=== PATIENT | male | born 1970 | race Hispanic/Latino ===

== ENCOUNTER 2024-07-31 11:03 | Emergency (ER) | payer OTHER, SELFPAY ==
[2024-07-31 11:15] VITALS: BP 120/76; PULSE 61; RESP 16; TEMP 36.6; O2SAT 98
--- NOTE | 2024-07-31 11:35 | ED.GENADULT ---
HPI - General Adult General Chief complaint: Nausea/Vomiting/Diarrhea Stated complaint: feels weak,shaky,stomach upset Time Seen by Provider: 07/31/24 11:36 Source: patient, RN notes reviewed and old records reviewed Mode of arrival: ambulatory Limitations: no limitations History of Present Illness HPI narrative: 54-year-old male presents to the [facility] with complaints of feeling weak, shaky, upset stomach for the last 5 days. Patient reports days ago started with a change in vision which has improved. Feeling nauseous shaky, generalized weak and diarrhea. Denies any chest pain or shortness of breath. Denies abdominal pain. States that he drinks a can of Coke or eats a piece of candy that he feels better Patient came to the [facility] requesting blood work, explained that we do not offer that service. Patient requesting that we transfer him to the ER for further evaluation. Onset (ago): day(s) (5) Related Data Home Medications ?Medication ?Instructions ?Recorded ?Confirmed ?Last Taken ?Type aspirin 81 mg tablet,delayed mg 07/31/24 Unknown History release atorvastatin 40 mg tablet mg 07/31/24 Unknown History sertraline 100 mg tablet mg 07/31/24 Unknown History Allergies Allergy/AdvReac Type Severity Reaction Status Date / Time No Known Allergies Allergy Verified 07/31/24 12:37 Review of Systems Review of Systems: All systems reviewed & are unremarkable except as noted in HPI and below Constitutional: Constitutional: Reports as per HPI, Reports fatigue, Reports lethargy and Reports weakness ENT: Reports system reviewed and no additional complaints, except as documented Cardiovascular: Cardiovascular: Reports no additional cardiovascular complaints, Denies chest pain and Denies dyspnea Respiratory: Respiratory: Reports no additional respiratory complaints, Denies chest congestion, Denies cough and Denies dyspnea Gastrointestinal: Gastrointestinal: Reports as per HPI, Denies abdominal pain, Reports diarrhea, Reports nausea and Denies vomiting Musculoskeletal: Musculoskeletal: Reports no additional musculoskeletal complaints Integumentary/Breasts: Skin/Breast: Reports system reviewed and no additional complaints, except as docu [facility] Past Medical History Medical History (Updated 07/31/24 @ 13:40 by Stefania Miller APRN) History of high cholesterol Comments At the time of my signature, I reviewed and agree with the nursing past medical, surgical, social, and family history. There is no relevant family history pertinent to the patient complaint. Exam Const: General: cooperative, healthy appearing, comfortable, no acute distress, well developed, alert and well nourished Nutritional Appearance: well nourished Orientation/consciousness: patient oriented x3 Limitations: no limitations HENMT: Head: normal to inspection Eyes: General: appearance normal, both eyes and all related structures Alignment and Position: alignment normal Neck: Neck: normal visual inspection, full ROM, no lymphadenopathy and no meningeal signs Chest: Chest palpation & inspection: normal inspection of the chest Resp: Effort & Inspection: normal respiratory effort and able to speak in complete sentences Auscultation: clear to auscultation bilaterally, no crackles, no rales, no rhonchi and no wheezes Cardio: Rate: regular rate Skin: General skin exam: normal color and no rashes or lesions noted Neuro: General: patient oriented x3, gait normal, moves all extremities and no meningeal signs Cognition (Neuro): normal cognition Speech: normal speech Gait exam (Neuro): Normal gait present Extrem: General: normal to inspection, full ROM, capillary refill normal and normal gait Psych: Appearance: grossly normal and well kempt Mental Status: mental status grossly normal Speech and movement: Normal speech and movement present and Clear speech present Affect: normal affect Attitude: cooperative Course Course Level of Care: Express Care Visit Vital Signs Vital signs: Vital Signs Temperature 97.9 F 07/31/24 11:15 Pulse Rate 61 07/31/24 11:15 Respiratory Rate 16 07/31/24 11:15 Blood Pressure 120/76 07/31/24 11:15 Pulse Oximetry 98 07/31/24 11:15 Oxygen Delivery Room Air 07/31/24 11:15 Temperature 97.9 F 07/31/24 11:15 Pulse Rate 61 07/31/24 11:15 Respiratory Rate 16 07/31/24 11:15 Blood Pressure 120/76 07/31/24 11:15 Pulse Oximetry 98 07/31/24 11:15 Oxygen Delivery Room Air 07/31/24 11:15 Reviewed Transfer Transfered to: [facility] (Per patient request) Transportation: Other (POV) Transfer rationale: Patient requesting transfer to the ER for further evaluation, testing Accepting physician: Spoke with Dr. Ortiz Medical Decision Making MDM Narrative Medical decision making narrative: Patient sitting in exam room. Patient is nontoxic, vitals are stable. Blood sugar 118. Patient with 5 day history of weakness, fatigue requesting lab work. Unable to provide services patient is requesting. Patient requested transfer to the ER All questions have been answered, and the patient deny any further questions. Some parts of this dictation were generated by voice recognition software and may contain typographical and/or grammatical inaccuracies. Differential Diagnosis Differential Diagnosis: Generalized weakness, dehydration, kidney issues, liver issues, diabetes, cardiac event Medical Records Medical records reviewed: Yes I reviewed the external patient's medical records. Vital Signs Vital Signs: Vital Signs Temperature 97.9 F 07/31/24 11:15 Pulse Rate 61 07/31/24 11:15 Respiratory Rate 16 07/31/24 11:15 Blood Pressure 120/76 07/31/24 11:15 Pulse Oximetry 98 07/31/24 11:15 Oxygen Delivery Room Air 07/31/24 11:15 Temperature 97.9 F 07/31/24 11:15 Pulse Rate 61 07/31/24 11:15 Respiratory Rate 16 07/31/24 11:15 Blood Pressure 120/76 07/31/24 11:15 Pulse Oximetry 98 07/31/24 11:15 Oxygen Delivery Room Air 07/31/24 11:15 Reviewed Lab Data Lab results reviewed: Yes I reviewed the patient's lab results. Labs: Lab Results 07/31/24 Range/Units 11:44 POC Capillary Glucose 118 H (65-105) mg/dl Reviewed Critical Care Time Critical Care Time Critical Care Time: No Discharge Plan Discharge Clinical Impression: Weakness Diarrhea Qualifiers: Diarrhea type: unspecified type Qualified Code(s): R19.7 - Diarrhea, unspecified Patient Disposition: Acute Care Hospital Condition: Stable Patient Language: Croatian Prescriptions: No Action atorvastatin 40 mg tablet sertraline 100 mg tablet aspirin 81 mg tablet,delayed release (/EC) Follow-up/Referrals: Laura,JOAQUIM Perez [Primary Care Provider] - 1 Week Time of Disposition: 11:51
[2024-07-31 11:47] LABS: Glucose Point of Care 118 mg/dl (65-105)
== END 2024-07-31 11:55 | disposition short-term general hospital (02) ==
PROVIDERS: Emergency Provider Nurse Practitioner; PCP Registered Nurse
DX: R53.1 Weakness (principal); R19.7 Diarrhea, unspecified; E78.00 Pure hypercholesterolemia, unspecified
CPT/HCPCS: 82948; 99212; G0463

== ENCOUNTER 2024-07-31 12:36 | Emergency (ER) | payer OTHER, SELFPAY ==
--- NOTE | ~2024-07-31 | XR_ITS ---
Clinical Indication: Fatigue, dizziness PA and lateral views of the chest: Comparison: None Findings: The lungs are clear, without evidence of focal consolidation or pleural effusion. Cardiome diastinal silhouette is within normal limits. Bones and soft tissues are unremarkable. Impression: Normal chest. Reviewed, dictated and finalized at location . Impression: Normal chest.
[2024-07-31 12:49] VITALS: BP 127/83; PULSE 57; RESP 18; TEMP 36.7; O2SAT 98
--- NOTE | 2024-07-31 12:59 | PC.NURSE ---
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 Starting 5 days ago he became feeling dizzy and fatigued. Symptoms are relieved by drinking coke. Pt. states he eats very little throughout the day. Pt. only complaint at this time is fatigue. Denies current dizziness. Pt. states i feel 75% good.
--- NOTE | 2024-07-31 13:01 | ECG_ITS ---
Test Date: 2024-07-31 13:41:23 Measurements Intervals [place] Rate: 58 P: 46 PA: 192 QRS: 61 QRSD: 94 T: 71 QT: 420 QTc: 414 Interpretive Statements SINUS BRADYCARDIA BORDERLINE ECG No previous ECG available for comparison Electronically Signed On 07-31-2024 14:02:33 CDT by Grady Alfaro D.O.
[2024-07-31 13:26] LABS: Basophils Absolute Auto 0.1 K/mm3 (0.0-0.1); Basophils Percent Auto 0.8 % (0.2-1.2); Eosinophils Absolute Auto 0.1 K/mm3 (0-0.3); Eosinophils Percent Auto 1.3 % (0-4.4); Hematocrit 49.8 % (42.0-52.0); Hemoglobin 16.4 g/dL (14.0-18.0); Immature Granulocyte Absolute 0.02 K/mm3 (0.00-0.031); Immature Granulocyte Percent A 0.3 % (0-0.5); Lymphocytes Absolute Auto 1.43 K/mm3 (0.9-3.2); Lymphocytes Percent Auto 23.8 % (18.3-44.2); Mean Corpuscular HGB Conc 32.9 g/dl (32-36); Mean Corpuscular Hemoglobin 29.7 pg (26-34); Mean Corpuscular Volume 90.2 fl (80-100); Mean Platelet Volume 9.9 fl (7.4-10.4); Monocytes Absolute Auto 0.3 K/mm3 (0.1-0.6); Monocytes Percent Auto 5.3 % (2.6-8.5); Neutrophils Absolute Auto 4.1 K/mm3 (1.3-6.7); Neutrophils Percent Auto 68.5 % (45.5-73.1); Platelet Count Result 244 k/mm3 (150-375); Red Blood Count 5.52 M/mm3 (4.6-6.20); Red Cell Distribution Width 13.1 % (11.5-14.5)
--- OUTSIDE RECORDS SUMMARY | 2024-07-31 13:34 | XMS_ITS | Referral Summary ---
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 Name Role Phone Chris Sanchez ASSURANCE AUDITOR Primary Care Provider [phone] Allergies No known active allergies Medications HYDROcodone-konrad taminophen (NORCO) 5-325 mg per tabletIndicatio ns:Pain Take 1 tablet by mouth every 8 (eight) hours as needed for pain 10 tablet 4 Active lidocaine (ASPERCREME) 4 % adhesive patch,medicated Apply 1 patch topically daily 10 patch 4 Active ibuprofen (ADVIL,MOTRIN) 600 mg tablet Take 1 tablet (600 mg total) by mouth every 6 (six) hours as needed for pain 20 tablet 4 Active Social History Tobacco Use Types Packs/Day Years Used Date Smoking Tobacco: Never Assessed Personal Safety Answer Date Recorded Have you ever been in or are you currently in a harmful physical or emotional relationship or is someone making you feel afraid or unsafe? Denies 01/14/2024 Sex and Gender Information Value Date Recorded Sex Assigned at Not on file Legal Sex Male 12:57 PM CDT Gender Identity Not on file Sexual Orientation Not on file Last Filed Vital Signs Vital Sign Reading Time Taken Comments Blood Pressure 143/85 01/14/2024 5:00 PM CDT Pulse 75 01/14/2024 5:00 PM CDT Temperature 36.9 C (98.4 F) 01/14/2024 12:59 PM CDT Respiratory Rate 18 01/14/2024 5:00 PM CDT Oxygen Saturation 99% 01/14/2024 5:00 PM CDT Inhaled Oxygen Concentration - - Weight 88.5 kg (195 lb) 01/14/2024 12:57 PM CDT Height 167.6 cm (5' 6 ) 01/14/2024 12:57 PM CDT Body Mass Index 31.47 01/14/2024 12:57 PM CDT Plan of Treatment Not on file Insurance [facility] Member Subscriber Plan / Payer (Ef fective 2024-Present) Name:Joshua Luis Relation to Subscriber:Self Name:Joshua Luis Payer ID:[id number] (NAIC) Group ID:Not on file Type:MEDICAID RISK OTHER Address: ATTN: [employer]S DEPT [address] [place] [id number] [facility] Care Teams 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
--- OUTSIDE RECORDS SUMMARY | 2024-07-31 13:34 | XMS_ITS | Clinical Summary ---
Author Organization [facility] Address [address] [place] [address] Care Team Providers Care Epic [employer] Name Role Phone Chris Sanchez TRANSMISSION SUPERINTENDENT Primary Care Provider [phone] Allergies No known active allergies Medications HYDROcodone-konrad [...] 01/14/2024 12:57 PM CDT Plan of Treatment Health Maintenance Due Date Last Done Comments Colon Cancer Screening-Colonoscopy 1968 Depression Screening 1968 Hepatitis C Screening 1968 Prostate Cancer Screening-PSA 1968 Hepatitis B Screening 1986 Regular Well Visit/Exam 18-64 1986 Covid-19 Vaccine ( season) 2023 02/08/2022, 03/20/2021, 07/26/2020, Additional history exists DTaP/Tdap/Td Vaccine (3 - Td or Tdap) 08/12/2027 08/11/2017, 08/03/2007 Zoster Vaccine Completed 01/04/2022, 10/19/2021 Influenza Vaccine Completed 12/26/2023, , 12/21/2021, Additional history exists Pneumococcal vaccine <65 Aged Out No longer eligible based on patient's age to complete this topic Insurance [facility] Care Teams [employer] Relationship Specialty Start Date End Date Chris Sanchez NP [facility], [place] [address] PCP - General Nurse Practitioner 01/14/24
--- OUTSIDE RECORDS SUMMARY | 2024-07-31 13:35 | XMS_ITS | Data Portability ---
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 Name Role Phone CHRIS ORTEGA Primary Care Provider Assessment Encounter Date Assessment Date Assessment LastModified by Organization Details LastModified Time 07/16/2024 07/16/2024 F/u 3-4 months, advised come fasting [email or web address] Not available 07/16/2024 15:01:43 Plan of Treatment Reminders Order Date Submit Date Provider Last Modified By Organization Details Last Modified Time Details Appointments ANY 15 2024 09:15A M Chris Ortega, [employer] Not available Not available Not available Lab lipid panel, serum 2023 024 [facility], [address] [place], [place] [address]medina Adolph, [facility] [address], [place], [address], 01/11/2024 22:07:41 CMP, serum or plasma 2023 024 [facility], [address] [place], [place] [address]medina Adolph, [address], [place], [address], 01/11/2024 22:07:42 TSH, ultra- sensit emery, serum 2023 024 MANLIUS [facility], [address] [place] [address], [address], [place], [address], 01/12/2024 11:17:45 HbA1c (hemog lobin A1c), blood 2023 024 [email or web address] In-Office Order, Internal Use Only DO Not Attach Compendium DO Not Attach Compendium, Do Not Delete/merge, [id number] 01/11/2024 16:55:41 lipid panel, serum 2023 024 [facility], [address] [facility], [address], [place], [address], 01/11/2024 10:05:31 CMP, serum or plasma 2023 024 [facility], [address] [facility] [address], [address], [place], [address], 01/11/2024 10:05:41 TSH, ultra- sensit emery, serum 2023 024 [facility], [address] [facility], [address], [place], [address], 01/11/2024 10:05:36 HbA1c (hemog lobin A1c), blood 2023 024 PEDRO In-Office Order, Internal Use Only DO Not Attach Compendium DO Not Attach Compendium, Do Not Delete/merge, [id number] 12/26/2023 16:44:34 Referral None record ed. Procedures None record ed. Surgeries None record ed. Imaging None record ed. Medication Orders atorva statin 40 mg tablet 2024 025 [facility], [address] [place] [address], [id number], 07/16/2024 15:15:00 sertra line 100 mg tablet 2024 025 [facility], [address] [place] [address], [id number], 07/16/2024 15:14:59 ibupro fen 600 mg tablet 2023 025 [facility], [address] [place] [address], [id number], 07/16/2024 14:44:34 hydroc odone 5 mg-konrad tamino phen 325 mg tablet 2023 024 [facility], [address] [place] [address], [id number], 07/16/2024 14:30:42 hydroc odone 5 mg-konrad tamino phen 325 mg tablet 2023 025 [facility], [address] [place] [address], [id number], 07/16/2024 14:44:32 Enteri c Coated Aspiri n 81 mg tablet ,delay ed releas e 2023 [facility], [address] [place] [address], [id number], 07/16/2024 14:44:34 atorva statin 40 mg tablet 2023 024 [facility], [address] [place] [address], [id number], 07/19/2024 14:48:24 diclof enac sodium 75 mg tablet ,delay ed releas e 2023 025 [facility], [address] [place] [address], [id number], 07/16/2024 14:44:36 sertra line 100 mg tablet 2023 024 [facility], [address] [place] [address], [id number], 07/19/2024 14:48:24 Enteri c Coated Aspiri n 81 mg tablet ,delay ed releas e 2023 [facility], [address] [place] [address], [id number], 07/16/2024 14:31:22 atorva statin 40 mg tablet 2023 024 [facility], [address] [place], [place], [id number], 09/23/2023 13:50:34 diclof enac sodium 75 mg tablet ,delay ed releas e 2023 [facility], [address] [place], [place], [id number], 07/16/2024 14:31:10 sertra line 100 mg tablet 2023 024 [facility], [address] [place], [place], [id number], 09/23/2023 13:50:33 Patient TargetsNo targets recorded. Patient Instructions Encounter Date Encounter Id Patient Instructions Last Modified By Organization Details Last Modified Time 2023 [id number] A healthy lifestyle: care instructions [email or web address] Not available 2023 14:44:54 aprenda acerca d el peso saludable - [learning about healthy weight] [email or web address] Not available 2023 14:44:54 ndice de masa corporal: instrucciones de cuidado - [body mass index: care instructions] [email or web address] Not available 2023 14:44:55 -Always present to ER or Urgent Care with any progession of/alarming symptoms, significant changes in symptoms that are concerning or urgent matters -Pt educated re heart health TLCs: Eat a variety of foods every day. Good choices include fruits, vegetables, whole grains (like oatmeal), dried beans and peas, nuts and seeds, soy products (like tofu), and fat-free or low-fat dairy products. Replace butter, margarine, and hydrogenated or partially hydrogenated oils with olive and canola oils. (Canola oil margarine without trans fat is fine.) Replace red meat with fish, poultry, and soy protein (like tofu). Limit processed and packaged foods like chips, crackers, and cookies. Bake, broil, or steam foods. Don't haq them. Be physically active. Get at least 30 minutes of exercise on most days of the week. Pt informed of optimum health recommendations: 150 mins of aerobic exercise weekly 7-9 hrs of sleep 7-13 servings of fruit and vegetables each day 1/2 of body weight in oz of water daily Plant based diet yarauz Not available 2023 14:33:12 if you are going to stop antidepressant instructed on tapering dosage Avoid all breads, potatoes, cereal, pasta, rice, margarine, refined sugars, milk yogurt, ice cream, juices, soda (including diet), beer, and manmade or manufactured desserts. Enjoy steak, fish, chicken (no skin), pork, butter, vegetables, beans, nuts, whole eggs, cheese (low fat or skim), cream in your coffee. stop smoking Benefits risks of psychotropic medications if you develop suicidal thoughts or behaviors seek immediate reevaluation avoid alcohol when taking psychotropic medications if you develop fevers, chills, diarrhea, muscle symptoms or seizures to seek immediate reevaluation take your medicine as directed yarauz Not available 2023 16:18:55 12/26/2023 [id number] vacuna contra la influenza (gripe): instrucciones de cuidado - [influenza (flu) vaccine: care instructions] yarauz Not available 12/26/2023 16:14:35 A healthy lifestyle: care instructions yarauz Not available 12/26/2023 16:14:35 aprenda acerca d el peso saludable - [learning about healthy weight] yarauz Not available 12/26/2023 16:14:35 ndice de masa corporal: instrucciones de cuidado - [body mass index: care instructions] yarauz Not available 12/26/2023 16:14:35 -Always present to ER or Urgent Care with any progession of/alarming symptoms, significant changes in symptoms that are concerning or urgent matters -Pt educated re heart health TLCs: Eat a variety of foods every day. Good choices include fruits, vegetables, whole grains (like oatmeal), dried beans and peas, nuts and seeds, soy products (like tofu), and fat-free or low-fat dairy products. Replace butter, margarine, and hydrogenated or partially hydrogenated oils with olive and canola oils. (Canola oil margarine without trans fat is fine.) Replace red meat with fish, poultry, and soy protein (like tofu). Limit processed and packaged foods like chips, crackers, and cookies. Bake, broil, or steam foods. Don't haq them. Be physically active. Get at least 30 minutes of exercise on most days of the week. Pt informed of optimum health recommendations: 150 mins of aerobic exercise weekly 7-9 hrs of sleep 7-13 servings of fruit and vegetables each day 1/2 of body weight in oz of water daily Plant based diet yarauz Not available 12/26/2023 16:10:16 if you are going to stop antidepressant instructed on tapering dosage Avoid all breads, potatoes, cereal, pasta, rice, margarine, refined sugars, milk yogurt, ice cream, juices, soda (including diet), beer, and manmade or manufactured desserts. Enjoy steak, fish, chicken (no skin), pork, butter, vegetables, beans, nuts, whole eggs, cheese (low fat or skim), cream in your coffee. stop smoking Benefits risks of psychotropic medications if you develop suicidal thoughts or behaviors seek immediate reevaluation avoid alcohol when taking psychotropic medications if you develop fevers, chills, diarrhea, muscle symptoms or seizures to seek immediate reevaluation take your medicine as directed yarauz Not available 12/26/2023 16:10:19 01/20/2024 [id number] broken rib: care instructions [email or web address] Not available 01/20/2024 12:01:46 aprenda acerca d el peso saludable - [learning about healthy weight] yarauz Not available 01/20/2024 11:41:07 ndice de masa corporal: instrucciones de cuidado - [body mass index: care instructions] yarauz Not available 01/20/2024 11:41:07 continue to use incentive spirometry continue pain meds Even if it hurts, try to cough or take the deepest breath you can at least once every hour. This will get air deeply into your lungs. This may reduce your chance of getting pneumonia or a partial collapse of a lung. Hold a pillow against your chest to make this less painful. Put ice or a cold pack on the area for 10 to 20 minutes at a time. Put a thin cloth between the ice and your skin. seek immediate care if You have some trouble breathing. You have a fever. You have a new or worse cough. jaguar Not available 01/20/2024 11:49:47 07/16/2024 [id number] A healthy lifestyle: care instructions margaret Not available 07/16/2024 15:01:18 Reason for Referral None Reported. Results Created Date Observation Date Name Description Value Unit Range Abnormal Flag Note LastModifiedBy Organization Detail LastModifiedTime 12/26/1912/26/2023 HbA1c (hemo globi n A1c), blood HbA1c Not Available In-Office Order Internal Use Only DO Not Attach Compendium DO Not Attach Compendium, Do Not Delete/merge, [id number] 12/26/2023 16:14:03 01/11/2001/11/2024 LIPID PANEL cholesterol, total 142 mg/dL 100-19 9 Not Available [facility] [address] [place], [address], 01/11/2024 22:07:40 01/11/2001/11/2024 LIPID PANEL triglyceride s 159 mg/dL 0-149 above high normal Not Available [facility] [address] [place], [address], 01/11/2024 22:07:40 01/11/2001/11/2024 LIPID PANEL HDL cholesterol 36 mg/dL 40-999 below low normal Not Available [facility] [address] [place], [address], 01/11/2024 22:07:40 01/11/2001/11/2024 LIPID PANEL VLDL cholesterol duc 32 mg/dL 5-40 Not Available [facility] [address] [place], [address], 01/11/2024 22:07:40 01/11/2001/11/2024 LIPID PANEL LDL chol calc (nih) 97 mg/dL 0-99 Not Available [facility] Department [address] [place], [address], 01/11/2024 22:07:40 01/11/20 24 01/11/2024 COMP. METAB OLIC PANEL (14) glucose 124 mg/dL 70-99 above high normal Not Available [facility] [address] [place], [address], 01/11/2024 22:07:42 01/11/20 24 01/11/2024 COMP. METAB OLIC PANEL (14) BUN 13 mg/dL 6-24 Not Available [facility] [address] [place], [address], 01/11/2024 22:07:42 01/11/20 24 01/11/2024 COMP. METAB OLIC PANEL (14) creatinine 0.85 mg/dL 0.76-1 .27 Not Available [facility] [address] [place] [address], [address], 01/11/2024 22:07:42 01/11/20 24 01/11/2024 COMP. METAB OLIC PANEL (14) eGFR 103 >=60 Units for eGFR value s are mL/mi n/1.7 3 The eGFR Calcu latio n has not been valid ated for patie nts under the age of 18. If test resul ts are displ ayed for a patie nt under the age of 18, disre jacobo that value . Not Available [facility] [address] [place], [address], 01/11/2024 22:07:42 01/11/20 24 01/11/2024 COMP. METAB OLIC PANEL (14) BUN/creatini ne ratio 16 9-20 Not Available [facility] [address] [place], [address], 01/11/2024 22:07:42 01/11/20 24 01/11/2024 COMP. METAB OLIC PANEL (14) sodium 139 mmol/ L 134-14 4 Not Available [facility] [address] [place], [address], 01/11/2024 22:07:42 01/11/20 24 01/11/2024 COMP. METAB OLIC PANEL (14) potassium 5.4 mmol/ L 3.5-5. 2 above high normal Not Available [facility] [address] [place], [address], 01/11/2024 22:07:42 01/11/20 24 01/11/2024 COMP. METAB OLIC PANEL (14) chloride 104 mmol/ L 96-106 Not Available [facility] [address] [place], [address], 01/11/2024 22:07:42 01/11/20 24 01/11/2024 COMP. METAB OLIC PANEL (14) carbon dioxide, total 23 mmol/ L 20-29 Not Available [facility] [address] [place], [address], 01/11/2024 22:07:42 01/11/20 24 01/11/2024 COMP. METAB OLIC PANEL (14) calcium 9.1 mg/dL 8.7-10 .2 Not Available [facility] [address] [place], [address], 01/11/2024 22:07:42 01/11/20 24 01/11/2024 COMP. METAB OLIC PANEL (14) protein, total 6.9 g/dL 6.0-8. 5 Not Available [facility] [address] [place], [address], 01/11/2024 22:07:42 01/11/20 24 01/11/2024 COMP. METAB OLIC PANEL (14) albumin 4.3 g/dL 3.8-4. 9 Not Available [facility] [address] [place] [address], [address], 01/11/2024 22:07:42 01/11/20 24 01/11/2024 COMP. METAB OLIC PANEL (14) globulin, total 2.6 g/dL 1.5-4. 5 Not Available [facility] [address] [place], [address], 01/11/2024 22:07:42 01/11/20 24 01/11/2024 COMP. METAB OLIC PANEL (14) A/G ratio 1.7 1.2-2. 2 Not Available [facility] [address] [place] [address], [address], 01/11/2024 22:07:42 01/11/20 24 01/11/2024 COMP. METAB OLIC PANEL (14) bilirubin, total 0.3 mg/dL 0.0-1. 2 Not Available [facility] [address] [place] [address], [address], 01/11/2024 22:07:42 01/11/20 24 01/11/2024 COMP. METAB OLIC PANEL (14) alkaline phosphatase 74 IU/L 44-121 Not Available [facility] [address] [place] [address], [address], 01/11/2024 22:07:42 01/11/20 24 01/11/2024 COMP. METAB OLIC PANEL (14) AST (SGOT) 20 IU/L 0-40 Not Available [facility] [address] [place] [address], [address], 01/11/2024 22:07:42 01/11/20 24 01/11/2024 COMP. METAB OLIC PANEL (14) ALT (SGPT) 26 IU/L 0-44 Not Available [facility] [address] [place] [address], [address], 01/11/2024 22:07:42 01/11/20 24 01/12/2024 TSH RFX ON ABNOR MAL TO FREE T4 TSH 4.630 uIU/m L 0.450- 4.500 above high normal Not Available [facility] ([facility]) [address] [facility] [address], [place], [address], 01/12/2024 11:17:45 01/11/20 24 01/12/2024 T4F T4,free (direct) 1.02 NG/dL 0.82-1 .77 Not Available [facility] ([facility]) [address] [facility] [address], [place], [address], 01/12/2024 11:17:46 01/11/20 24 01/11/2024 HbA1c (hemo globi n A1c), blood HbA1c 6.1 Not Available In-Office Order Internal Use Only DO Not Attach Compendium DO Not Attach Compendium, Do Not Delete/merge, [id number] 01/11/2024 10:06:32 Result Notes None recorded. Problems Name Problem SNOMED Code Status Onset Date Resolution Date Notes Provider Name and Address Organization Details Recorded Time Mixed hyperlip idemia 966780557 Active 2018 Alise Saenz RN null, [place] - [facility] 2 10:32:51 Subclini duc hypothyr oidism 35792136 Active 2018 REY Baer Attn: Caroline moore,[address] [place], [address], [place] [facility] 2 11:04:01 Screenin g for malignan t neoplasm of colon Completed 202006/15/2021 Alise [place] [facility] 2 11:48:19 Divertic ulosis of colon 124913843 Active 2020 Alise [place] [facility] 2 10:32:18 Internal hemorrho ids 63010706 Active 2020 Alise [place] [facility] 2 10:32:35 Prediabe britni 140729981 Active 2021 REY Baer Attn: Accountchris g,[address], [place], [address], [place] [facility] 2 11:04:01 Body mass index 30+ - obesity 660431445 Active 2021 Alise [place] [facility] 2 10:32:10 Increase d blood pressure 70210127 Active 2021 Alise [place] [facility] 2 10:32:24 Recurren t herpes simplex labialis 972547343 Active 2022 Chris Ortega [facility] Attn: Caroline moore,[address] [facility], [place], [address], [place] [facility] 3 14:01:36 Pain of shoulder region 10677280 Active 2022 Chris Ortega [facility] Attn: Caroline moore,[address] [facility], [place], [address], [place] [facility] 3 14:34:35 Pterygiu m of right eye 00166635062 9101 Active 2023 Chris Ortega [facility] Attn: Caroline moore,[address] [facility], [place], [address], [place] [facility] 4 14:38:56 Fracture of multiple ribs 5225772 Active 2023 Chris Ortega [facility] Attn: Caroline moore,[address] [facility], [place], [address], [place] [facility] 4 11:47:32 Overweig ht 611664908 Active 2024 PAR[facility] GOLDEN Attn: Caroline moore,[address] [place], [address], [place] [facility] 5 15:02:33 Depressi ve disorder 82084990 Completed 08/07/2018 Alise [place] [facility] 9 10:13:45 Mixed anxiety and depressi ve disorder 085084552 Active Alise Saenz RN null, [facility] 2 10:32:41 Gastroes ophageal reflux disease 469175712 Active Alise Saenz RN null, [facility] 2 10:32:29 Tobacco user 365472777 Completed 12/26/2023 Removal Reason: quite in 2020 Chris Ortega, [facility]- Attn: Caroline moore,[address] [facility], [place], [address], [facility] 4 16:19:23 Gingivit is 53871741 Completed 08/11/2017 Alise Saenz RN null, [facility] 8 11:43:52 Onychomy cosis 582893135 Completed 08/07/2018 Alise Saenz RN null, [facility] 9 10:13:39 Dupuytre n's disease of palm 063878775 Completed 201612/15/2020 Alise Saenz RN null, [facility] 1 12:29:58 Problem Notes None recorded. Procedures Surgical History Date Name Laterality Status Provider Name and Address Organization Details Recorded Time colonoscopy completed Heike Yañez MA [facility] 03/16/2021 12:05:56 Imaging Results None recorded. Procedure Notes None recorded. Medical Equipment None Reported. Allergies No known drug allergies Medications Name Sig Start Date Stop Date Status Note LastModified by Organization Details LastModified Time Miralax 17 gram/dose oral powder In a pitcher, mix entire bottle of Miralax in one 64 ounce bottle of yellow or green Gatorade . Beginnin g at 5:00 PM the evening before the colonosc opy, drink 1 8-ounce glass every 15 minutes until complete d. Drink 4 glasses of water after finishin g this mixture 03/16 completed Not Available Not Available Not Available atorvasta tin 40 mg tablet TAKE 1 TABLET BY MOUTH EVERYDAY AT BEDTIME FOR CHOLESTE ROL active Not Available Not Available No t Available atorvasta tin 20 mg tablet Take 1 tablet every day by oral route. 10/27 completed Not Available Not Available Not Available atorvasta tin 10 mg tablet Take 1 tablet every day by oral route. 08/12 completed 11/27/18: refill x2 called into [facility] .08/18/18 : #30 w/ 4rfs. Called into [facility]. Not Available Not Available Not Available hydrocodo ne 5 mg-acetam inophen 325 mg tablet TAKE ONE TABLET BY MOUTH TWICE DAILY EVERY MORNING AND AT BEDTIME FOR PAIN 07/16 completed Not Available Not Available Not Available meloxicam 15 mg tablet TAKE ONE TABLET BY MOUTH EVERY DAY 06/26 completed Not Available Not Available Not Available prednison e 20 mg tablet TAKE ONE TABLET BY MOUTH EVERY DAY FOR 7 DAYS 06/26 completed Not Available Not Available Not Available sertralin e 100 mg tablet TAKE 1 Tablet BY MOUTH EVERY MORNING FOR ANXIETY active Not Available Not Available No t Available aspirin 81 mg tablet,de layed release Take 1 tablet every day by oral route, for [facility]. 07/16 completed Not Available Not Available Not Available levothyro xine 25 mcg tablet TAKE 1 TABLET BY MOUTH EVERY DAY 12/21 completed Not Available Not Available Not Available ofloxacin 0.3 % ear drops INSTILL 10 DROPS INTO AFFECTED EAR(S) BY OTIC ROUTE ONCE DAILY 05/14 completed Not Available Not Available Not Available Lamisil 250 mg tablet Take 1 tablet every day by oral route. 04/26 completed Not Available Not Available Not Available baclofen 10 mg tablet Take 1 tablet 3 times a day by oral route. 08/11 completed Not Available Not Available Not Available levothyro xine 50 mcg tablet Take 1 tablet every day by oral route. 08/12 completed Not Available Not Available Not Available pantopraz ole 40 mg tablet,de layed release TAKE 1 TABLET BY MOUTH EVERY DAY IN THE MORNING 06/26 completed Not Available Not Available Not Available nitroglyc bharat 0.4 mg sublingua l tablet Place 1 tablet as needed by sublingu al route as needed. 03/16 completed Not Available Not Available Not Available aspirin 81 mg chewable tablet Chew 1 tablet every day by oral route. 09/14 completed Not Available Not Available Not Available diclofena c sodium 75 mg tablet,de layed release Take 1 tablet twice a day by oral route. 07/16 completed Not Available Not Available Not Available folic acid 1 mg tablet Take 1 tablet every day by oral route. 03/16 completed Not Available Not Available Not Available ibuprofen 600 mg tablet TAKE ONE TABLET BY MOUTH THREE TIMES DAILY, MORNING, MID-DAY & AT BEDTIME. FOR PAIN 07/16 completed Not Available Not Available Not Available albuterol sulfate HFA 90 mcg/actua tion aerosol inhaler INHALE 2 PUFFS BY MOUTH EVERY 4 HOURS 12/27 completed Not Available Not Available Not Available naproxen 500 mg tablet TAKE 1 TABLET BY MOUTH TWICE DAILY FOR 14 DAYS 12/27 completed Not Available Not Available Not Available metoclopr amide 10 mg tablet TAKE 1 TABLET BY MOUTH FOUR TIMES DAILY BEFORE MEALS 12/21 completed Not Available Not Available Not Available Dulcolax (bisacody l) 5 mg tablet,de layed release At 2:00 PM the day before the colonosc opy, take all 4 tablets of Dulcolax by mouth at one time with 8 ounces of water 03/16 completed Not Available Not Available Not Available cyclobenz aprine 5 mg tablet TAKE ONE TABLET BY MOUTH THREE TIMES DAILY 06/26 completed Not Available Not Available Not Available Zyrtec 10 mg capsule Take by oral route. 03/20 completed Not Available Not Available Not Available Vitals Date Recorded Body height Body mass index (BMI) Body weight Body temperature Heart rate Systolic blood pressure Diastolic blood pressure Provider Name and Address Organization Details Last Updated DateTime 170.18 cm 30.8 kg/m2 86602.2 9 g 98 [degF] 74 /min 128 mm[Hg] 90 mm[Hg] Heike Yañez [place] [facility] 14:19:09 Date Recorded Body height Provider Name an d Address Organization Details Last Updated DateTime 12/26/2023 170.18 cm Iraida vargas [place] [facility] 12/26/2023 15:35:07 Date Recorded Body mass index (BMI) Body weight Body temperature Systolic blood pressure Diastolic blood pressure Provider Name and Address Organization Details Last Updated DateTime 12/26/2023 30.6 kg/m2 40541.3 1 g 97.5 [degF] 120 mm[Hg] 88 mm[Hg] Heike Yañez MA [facility] 4 16:00:20 Date Recorded Body height Provider Name an d Address Organization Details Last Updated DateTime 01/11/2024 170.18 cm Heike garcia MA [facility] 01/11/2024 10:06:05 Date Recorded Body height Body mass index (BMI) Body weight Oxygen saturation Oxygen saturation in Arterial blood by Pulse oximetry Heart rate Body temperature Systolic blood pressure Diastolic blood pressure Provider Name and Address Organization Details Last Updated DateTime 170.18 cm 30.8 kg/m2 06910.2 9 g 96 % 96 % 68 /min 97.8 [degF] 130 mm[Hg] 84 mm[Hg] Alise Saenz RN [facility] 4 10:54:39 Date Recorded Body height Body mass index (BMI) Body weight Heart rate Oxygen saturation Oxygen saturation in Arterial blood by Pulse oximetry Body temperature Systolic blood pressure Diastolic blood pressure Provider Name and Address Organization Details Last Updated DateTime 170.18 cm 29.8 kg/m2 79465.3 5 g 82 /min 96 % 96 % 98 [degF] 116 mm[Hg] 74 mm[Hg] Alise Saenz RN [facility] 5 14:27:33 Social History Question Answer Notes LastModified by Organizat ion Details LastModified Time Tobacco Smoking Status Former Smoker pt stateds quit smoking 07/2021 LAQUITA Savage, [facility] 09/14/2021 10:42:03 Do You Have An Advance Directive? No Information not available 06/16/2020 What Is Your Level Of Alcohol Consumption? None [email or web address] Information not available 09/23/2020 Are You Blind Or Do You Have Difficulty Seeing? No Information not available 06/16/2020 What Is Your Level Of Caffeine Consumption? Moderate Coffee [email or web address] Information not available 09/15/2020 How Much Tobacco Do You Chew? None Information not available 06/17/2015 In The 14 Days Before Symptom Onset, Have You Had Close Contact With A Laboratory-confi rmed COVID-19 While That Case Was Ill? No Information not available 08/13/2019 In The 14 Days Before Symptom Onset, Have You Had Close Contact With A Person Who Is Under Investigation For COVID-19 While That Person Was Ill? No Information not available 08/13/2019 Have You Been To An Area Known To Be High Risk For COVID-19? No Information not available 08/13/2019 Are You Currently Employed? Yes Information not available 06/16/2020 Are You Deaf Or Do You Have Serious Difficulty Hearing? No Information not available 06/16/2020 What Type Of Diet Are You Following? REGULAR Information not available 06/17/2015 Do You Or Have You Ever Used E-cigarettes Or Vape? Never Used Electronic Cigarettes Information not available 08/13/2019 Education Less Than 8th Grade Information not available 06/17/2015 What Is Your Occupation? [employer] [email or web address] Information not available 07/22/2020 Are There Any Guns Present In Your Home? No Information not available 06/17/2015 Hard Of Hearing Or Deaf In One Or Both Ears? No Information not available 06/17/2015 Legally Blind In One Or Both Eyes? No Information not available 06/17/2015 Marital Status Informat ion not available 06/17/2015 What Was The Date Of Your Most Recent Tobacco Screening? 07/16/2024 [email or web address] Information not available 07/16/2024 Performs Monthly Self-breast Exam? No Information not available 06/17/2015 What Is Your Relationship Status? Single Information not available 06/16/2020 Do You Use Your Seat Belt Or Car Seat Routinely? Yes Information not available 06/16/2020 Seat Belts Used Routinely Yes Information not available 06/17/2015 Are You Sexually Active? Yes Information not available 06/16/2020 Smoke Alarm In Home Yes Information not available 06/17/2015 Do You Have Smoke And Carbon Monoxide Detectors In Your Home? Yes Information not available 06/16/2020 At What Age Did You Start Smoking Tobacco? 11 Information not available 06/17/2015 Are You Passively Exposed To Smoke? No Information not available 06/16/2020 How Much Tobacco Do You Smoke? No Information not available 09/14/2021 General Stress Level High Information not available 06/17/2015 Do You Feel Stressed (tense, Restless, Nervous, Or Anxious, Or Unable To Sleep At Night)? [id number] Information not available 06/16/2020 Do You Use Any Illicit Or Recreational Drugs? No Information not available 06/16/2020 Do You Use Sunscreen Routinely? No Information not available 06/17/2015 Has Tobacco Cessation Counseling Been Provided? Yes Information not available 08/07/2018 On What Date Was Tobacco Cessation Counseling Provided? 12/26/2023 Information not available 12/26/2023 How Many Years Have You Smoked Tobacco? 35 Information not available 06/16/2020 Do You Or Have You Ever Used Any Other Forms Of Tobacco Or Nicotine? No Information not available 06/16/2020 Sex: Male Functional Status Question Answer Note LastModified by Organization D etails LastModified Time Are you able to care for yourself? Yes Information n ot available 06/16/2020 What is your exercise level? None Information not available 06/17/2015 Mental Status None recorded. Family History Relationship Description Onset Age of this Age Resolved Age Notes LastModified by Organization Details LastModified Time Mother Anemia 74 [email or web address] Not available 01/2018 12:08:42 Mother Kidney disease 74 [email or web address] Not available 2017 12:14:05 Father Neoplasm of skin 73 73 [email or web address] Not available 2017 12:10:17 Sister Gastritis 40 [email or web address] Not available 08/11/2017 12:10:53 Sister Diabetes mellitus [email or web address] Not available 2019 10:49:24 Maternal Grandmother Malignant tumor of colon 80 [email or web address] Not available 2017 12:11:48 Medical History Condition Response Diabetes N Anxiety Disorder Y Muscle, Joint, or Bone Problems Y Gout N High Blood Pressure Y Seizures/Epilepsy N Kidney Stones N Hyperthyroidism N Tuberculosis N Hyperlipidemia Y Stroke N GI Problems Y Asthma N COPD N Hypothyroidism Y Depression Y Sleep Apnea N GERD/Reflux Y Hepatitis N Heart Disease N Hypertension N Kidney Disease N Immunizations Vaccine Type Date Status Note Provider Nam e and Address Organization Details Recorded Time Influenza, split virus, quadrivalent, PF 6 completed Not Available [facility] 04/21/2019 02:32:33 Influenza, split virus, quadrivalent, preservative 7 completed Not Available [facility] 04/21/2019 02:44:55 Tdap 8 completed Not Available [facility] 04/21/2019 02:41:27 Influenza, split virus, quadrivalent, PF 8 completed Not Available [facility] 04/21/2019 02:36:31 Influenza, split virus, quadrivalent, preservative 9 completed Not Available [facility] 04/21/2019 02:45:26 COVID-19, mRNA, LNP-S, PF, 100 mcg/0.5mL dose or 50 mcg/0.25mL dose 1 completed Travis Aguiar RN null, [place] [facility] 06/28/2020 13:15:21 COVID-19, mRNA, LNP-S, PF, 100 mcg/0.5mL dose or 50 mcg/0.25mL dose 1 completed Erica Foster [place], [place] [facility] 07/26/2020 17:41:18 Influenza, split virus, quadrivalent, PF 1 completed Heike Yañez [place], [place] [facility] 03/16/2021 13:01:42 COVID-19, mRNA, LNP-S, PF, 30 mcg/0.3 mL dose 1 completed Alise Saenz [place] [facility] 03/20/2021 11:37:50 Influenza, split virus, quadrivalent, PF 2 completed REY Baer Attn: Accounting,[address] [facility], [place], [address], [place] [facility] 12/21/2021 13:34:27 COVID-19, mRNA, LNP-S, bivalent, PF, 30 mcg/0.3 mL dose 2 completed Alise Saenz [place], [place] [facility] 02/08/2022 16:23:50 Influenza, split virus, quadrivalent, PF 3 completed Chris Ortega [facility] Attn: Accounting,[address] [facility], [place], [address], [place] [facility] 12/30/2022 11:29:59 Influenza, split virus, trivalent, preservative 4 completed Heike Yañez [place] [facility] 12/26/2023 16:43:44 Tdap 8 completed RADHA [place] [facility] 07/26/2016 10:21:57 Pneumococcal conjugate PCV20, polysaccharide [id number] conjugate, adjuvant, PF 5 completed Heike Yañez [place], [place] [facility] 07/16/2024 15:08:15 Past Encounters Encounter ID Performer Location Encounter Start Date Encounter Closed Date Diagnosis/Indication Diagnosis SNOMED-CT Code Diagnosis ICD10 Code Diagnosis Note [id number] [facility] [address], [place] [address] 06/17/2015 14:09:22 06/22/2015 22:24:50 Mixed anxiety and depressive disorder 005287560 F41.8 Gastroesop hageal reflux disease 598736798 K21.9 Tobacco user 046494961 Z 72.0 [id number] Chris [facility] [address] [place] [address] 08/15/2015 10:26:43 08/20/2015 18:57:58 Mixed anxiety and depressive disorder 280195713 F41.8 Gastroesop hageal reflux disease 195698677 K21.9 Tobacco user 889589486 Z 72.0 give tobacco cessation informatio n discussed methods used to aide patient wishes to wait for now Gingivitis 83748249 K05. 10 see dentist give list [id number] [facility] [address] [address] 4 12/22/2015 10:50:38 12/24/2015 18:33:45 Mixed anxiety and depressive disorder 278977727 F41.8 Gastroesop hageal reflux disease 559958957 K21.9 Tobacco user 997183046 Z 72.0 Onychomycosis 280178919 B35.1 no alcohol during treatment discussed [facility] symptom /signs [id number] Chris [facility]gaFormerly [facility] [address] [address] 4 04/26/2016 11:25:33 05/06/2016 17:18:08 Mixed anxiety and depressive disorder 135991214 F41.8 continue Sertraline Gastroesop hageal reflux disease 018761471 K21.9 avoid aggravatin g foods Tobacco user 889857640 Z 72.0 advised to stop smoking Onychomycosis 242255332 B35.1 no alcohol during treatment discussed [facility] symptom /signs Contractur e of joint of hand 30605958 M24.549 Dupuytren' s disease of palm 102181350 M72.0 Offered consultati on with Ortho but patient wishes to wait [id number] Chris [facility]gaFormerly [facility] [address] [place] [address] 4 07/26/2016 10:00:28 07/26/2016 16:46:25 Dupuytren's disease of palm 512254240 M72.0 Offered consultati on with Ortho but patient wishes to wait Mixed anxi ety and depressive disorder 104666806 F41.8 continue Sertraline Gastroesop hageal reflux disease 841212262 K21.9 avoid aggravatin g foods Tobacco user 026837024 Z 72.0 advised to stop smoking Onychomycosis 321980354 B35.1 no alcohol during treatment discussed [facility] symptom /signs nails are improving Contractur e of joint of hand 59550124 M24.549 Obesity 097270202 E66.9 [id number] [facility] [address] [place] [address] 4 12/16/2016 14:33:04 12/25/2016 21:42:15 Mixed anxiety and depressive disorder 715568784 F41.8 continue Sertraline Gastroesop hageal reflux disease 807570480 K21.9 avoid aggravatin g foods Dupuytren' s disease of palm 934150911 M72.0 Offered consultati on with Ortho but patient wishes to wait Tobacco user 108870921 Z 72.0 advised to stop smoking Onychomycosis 699042225 B35.1 no alcohol during treatment discussed [facility] symptom /signs nails are improving Contractur e of joint of hand 98865262 M24.549 Obesity 806946206 E66.9 HIV screening 703590926 Z11.4 Administra tion of influenza vaccine 83810545 Z23 [id number] [facility] [address] [address] 04/25/2017 10:46:01 05/03/2017 16:10:25 Mixed anxiety and depressive disorder 512983098 F41.8 continue Sertraline Gastroesop hageal reflux disease 899104235 K21.9 avoid aggravatin g foods Dupuytren' s disease of palm 144152634 M72.0 Offered consultati on with Ortho but patient wishes to wait Tobacco user 738801976 Z 72.0 advised to stop smoking Onychomycosis 460915369 B35.1 no alcohol during treatment discussed [facility] symptom /signs nails are improving Contractur e of joint of hand 35405512 M24.549 Obesity 863617444 E66.9 [id number] Chris [facility] [address] [place] [address] 4 08/11/2017 11:31:36 08/15/2017 08:33:40 Mixed anxiety and depressive disorder 544326305 F41.8 Patient feels well and wants to continue Sertraline Gastroesop hageal reflux disease 487198636 K21.9 avoid aggravatin g foods only takes 1 daily Dupuytren' s disease of palm 143266663 M72.0 Offered consultati on with Ortho but patient wishes to wait Tobacco user 935817064 Z 72.0 advised to stop smoking Contractur e of joint of hand 97298450 M24.549 Obesity 033404691 E66.9 Adult heal th examination 072108222 Z00.00 [id number] Chris [facility]Former[facility] [address] [place] [address] 02/06/2018 09:52:41 02/08/2018 16:34:38 Mixed anxiety and depressive disorder 342861694 F41.8 Patient feels well and wants to continue Sertraline Gastroesop hageal reflux disease 710371633 K21.9 avoid aggravatin g foods only takes 1 daily Administra tion of influenza vaccine 96859991 Z23 [id number] [place] [address] [place], [place] [address] 08/07/2018 10:06:14 08/09/2018 10:03:07 Mixed anxiety and depressive disorder 772619995 F41.8 Patient feels well and wants to continue Sertraline Gastroesop hageal reflux disease 515285728 K21.9 avoid aggravatin g foods only takes 1 daily Body mass index 25-29 - overweight 301551470 Z68.29 BMI 29.2 Colonoscopy declined 159 9054016 99592 Z53.20 refuses colonoscop y or fecal stool check Mixed hyperlipidemia 267 145156 E78.2 Insomnia 947513393 G47.0 0 Try Benadryl 25mg-50mg at hs prn Screening for malignant neoplasm of prostate 320031305 Z12.5 refuses RENNY and Lab testing at this time [id number] Silvia Torres Nolan [facility] [address] [place] [address] 10/18/2018 10:01:28 10/20/2018 09:06:14 Mixed hyperlipidemia 943363009 E78.2 [id number] Chris [facility] [address] [place] [address] 02/05/2019 09:53:05 02/07/2019 09:23:58 Gastroesophageal reflux disease 750925000 K21.9 avoid aggravatin g foods only takes 1 daily Mixed hyperlipidemia 267 744166 E78.2 10/18/2018c [id number] 107HDL 33LDL 82 Mixed anxi ety and depressive disorder 631455377 F41.8 Patient feels well and wants to continue Sertraline Body mass index 25-29 - overweight 798747284 Z68.29 BMI 99932-421 Healthy weight range Colonoscopy declined 227 3938544 04795 Z53.20 refuses colonoscop y or fecal stool check Insomnia 569779123 G47.0 0 Try Benadryl 25mg-50mg at hs prn Screening for malignant neoplasm of prostate 207726615 Z12.5 refuses RENNY and Lab testing at this time [facility]clin[facility] hypothyroidism 34850986 E02 will start treatment for subclinica l hypothyroi dism Tobacco user 756045657 Z 72.0 advised to stop smokingusi ng patch 5-6 cigs daily Administra tion of influenza vaccine 86399725 Z23 Otitis externa 5526533 H 60.91 [id number] Silvia Torres [facility] [address] [place] [address] 05/08/2019 10:19:39 05/09/2019 10:35:58 Subclinical hypothyroidism 56421191 E02 [id number] [facility] [address] [place] [address] 05/14/2019 09:56:41 05/15/2019 08:46:09 Mixed hyperlipidemia 729665217 E78.2 10/18/2018c [id number] 107HDL 33LDL 82continue Atorvastat in has at home Subclinica l hypothyroidism 99533480 E02 Levothyrox ine 50mcg daily (has at pharmacy)- no refills needed Gastroesop hageal reflux disease 834680941 K21.9 avoid aggravatin g foods only takes 1 daily Mixed anxi ety and depressive disorder 800307959 F41.8 Patient feels well and wants to continue Sertraline Body mass index 25-29 - overweight 882513810 Z68.29 BMI 90319-989 Healthy weight range Colonoscopy declined 877 5642864 33186 Z53.20 refuses colonoscop y or fecal stool check Tobacco user 722129826 Z 72.0 advised to stop smokingusi ng patch 5-6 cigs daily Insomnia 733368624 G47.0 0 Try Benadryl 25mg-50mg at hs prn Screening for malignant neoplasm of prostate 092899237 Z12.5 refuses RENNY and Lab testing at this time Prediabetes 581924947 R7 3.03 HA1C 5.7 [id number] [facility] [address] [place] [address] 08/13/2019 11:01:33 08/14/2019 11:17:48 Mixed hyperlipidemia 440373603 E78.2 10/18/2018c ho 136trig 107HDL 33LDL 82patient stopped atorvastat inpatient voices he felt no different while taking it and he doesnt like taking all these pills Subclinica l hypothyroidism 95447552 E02 Patient stopped medication voices I feel fine Gastroesop hageal reflux disease 185081895 K21.9 avoid aggravatin g foods only takes 1 daily Mixed anxi ety and depressive disorder 944402449 F41.8 Patient feels well and wants to continue Sertraline Body mass index 25-29 - overweight 530602920 Z68.29 BMI 85262-520 Healthy weight range Colonoscopy declined 242 4975206 20988 Z53.20 refuses colonoscop y or fecal stool check Tobacco user 441337592 Z 72.0 advised to stop smokingusi ng patch 5-6 cigs daily Insomnia 669610822 G47.0 0 Try Benadryl 25mg-50mg at hs prn Screening for malignant neoplasm of prostate 815123689 Z12.5 refuses RENNY and Lab testing at this time Prediabetes 505932624 R7 3.03 HA1C 5.7 Statin declined 86667385 0 Z53.20 Depression screening 171 192029 Z13.31 negative [id number] Chris [facility]gaFormer[facility] [address] [place] [address] 12/17/2019 11:07:27 12/18/2019 07:02:32 Mixed anxiety and depressive disorder 161039028 F41.8 Patient feels well and wants to continue Sertraline Mixed hyperlipidemia 267 274034 E78.2 10/18/2018c ho 136trig 107HDL 33LDL 82patient stopped atorvastat inpatient voices he felt no different while taking it and he doesnt like taking all these pills Subclinica l hypothyroidism 55133260 E02 TSH 5.64 on 05/08/2019Pa tient stopped medication voices I feel fine Gastroesop hageal reflux disease 685846033 K21.9 avoid aggravatin g foods only takes 1 daily Body mass index 25-29 - overweight 976842578 Z68.29 BMI 33529-779 Healthy weight range Colonoscopy declined 308 7005701 98203 Z53.20 refuses colonoscop y or fecal stool check Tobacco user 963047699 Z 72.0 advised to stop smokingusi ng patch 5-6 cigs daily Insomnia 565163001 G47.0 0 Try Benadryl 25mg-50mg at hs prn Screening for malignant neoplasm of prostate 597969628 Z12.5 refuses RENNY and Lab testing at this time Prediabetes 324859964 R7 3.03 HA1C 5.7 Statin declined 69893525 0 Z53.20 Dyspnea 054476522 R06.00 occasional at rest brief episodesma il orders to patient [id number] MARINA BONILLA [facility] [address], [place] [address] 03/20/2020 12:13:52 03/21/2020 13:40:26 Mixed anxiety and depressive disorder 029219532 F41.8 -Current regimen maintained -Pt reports symptoms controlled -RFs as appropriat e Mixed hyperlipidemia 267 166431 E78.2 Managed with [facility]; refused statin therapy Subclinica l hypothyroidism 73568928 E02 PCP had offered management ; pt refused Gastroesop hageal reflux disease 159634807 K21.9 -Current regimen maintained -Pt reports symptoms controlled -RFs as appropriat e Body mass index 25-29 - overweight 506260769 Z68.29 -Pt advised of BMI: -Pt encouraged to eat a plant-base d diet, minimizing processed foods and portion control -Pt advised on the recommenda tions for routine exercise Tobacco user 643828471 Z 72.0 -Pt is a current smoker-Pt advised in the derogatory effects of smoking-Co unseling for smoking cessation completed Prediabetes 249797967 R7 3.03 HA1C 5.7-Pt advised in TLCs [id number] SARAN Baer[facility] [address] [place] [address] 06/16/2020 12:16:09 06/17/2020 17:32:51 Mixed anxiety and depressive disorder 288767999 F41.8 -Current regimen maintained -Pt reports symptoms controlled -RFs as appropriat e Mixed hyperlipidemia 267 941912 E78.2 10/18/2018M anaged with [facility]; refused statin therapycho lesterol, total 136 triglyceri debi 107 HDL cholestero l 33 below low normal VLDL cholestero l duc 21 LDL cholestero l calc 82Pt informed of optimum health recommenda tions: 150 mins of aerobic exercise weekly 7-9 hrs of sleep 7-13 servings of fruit and vegetables each day 1/2 of body weight in oz of water daily Plant based diet Subclinica l hypothyroidism 12763143 E02 PCP had offered management ; pt refused Gastroesop hageal reflux disease 735280508 K21.9 -Current regimen maintained -Pt reports symptoms controlled -RFs as appropriat e Body mass index 25-29 - overweight 116558729 Z68.29 -Pt advised of BMI: -Pt encouraged to eat a plant-base d diet, minimizing processed foods and portion control -Pt advised on the recommenda tions for routine exercise Tobacco user 946003070 Z 72.0 -Pt is a current smoker-Pt advised in the derogatory effects of smoking-Co unseling for smoking cessation completed Prediabetes 934343180 R7 3.03 HA1C 5.7-Pt advised in TLCs Chest pain 84510556 R07. 9 L chest pain off and on for 3 months.Den ies radiation to neck, arms etc.,Repor ts taking Carafate helps sometimes stop smokingsto p alcoholAvo id all breads, potatoes, cereal, pasta, rice, margarine, refined sugars, milk yogurt, ice cream, juices, soda (including diet), beer, and manmade or manufactur ed desserts. Enjoy steak, fish, chicken (no skin), pork, butter, vegetables , beans, nuts, whole eggs, cheese (low fat or skim), cream in your coffee.[place] send for cardiology evaluation Screening for malignant neoplasm of prostate 058593300 Z12.5 refuses RENNY and Lab testing at this time Screening for malignant neoplasm of colon 771651034 Z12.11 49 y/o HM in need of colonoscop y [id number] [facility] [address] [place] [address] 06/23/2020 12:07:59 06/24/2020 15:21:37 Prediabetes 070385734 R73.03 HA1C 5.7-Pt advised in TLCs Mixed hyperlipidemia 267 690561 E78.2 10/18/2018M anaged with [facility]; refused statin therapycho lesterol, total 136 triglyceri debi 107 HDL cholestero l 33 below low normal VLDL cholestero l duc 21 LDL cholestero l calc 82Pt informed of optimum health recommenda tions: 150 mins of aerobic exercise weekly 7-9 hrs of sleep 7-13 servings of fruit and vegetables each day 1/2 of body weight in oz of water daily Plant based diet Subclinica l hypothyroidism 66056523 E02 PCP had offered management ; pt refused Chest pain 96044292 R07. 9 L chest pain off and on for 3 months.Den ies radiation to neck, arms etc.,Repor ts taking Carafate helps sometimes stop smokingsto p alcoholAvo id all breads, potatoes, cereal, pasta, rice, margarine, refined sugars, milk yogurt, ice cream, juices, soda (including diet), beer, and manmade or manufactur ed desserts. Enjoy steak, fish, chicken (no skin), pork, butter, vegetables , beans, nuts, whole eggs, cheese (low fat or skim), cream in your coffee.[place] send for cardiology evaluation Screening for malignant neoplasm of prostate 834220610 Z12.5 refuses RENNY and Lab testing at this time [id number] Travis Aguiar RN [facility] [address] [place] [address] 06/28/2020 12:46:02 07/04/2020 14:35:07 Administration of SARS-CoV-2 antigen vaccine 674728255 Z23 [id number] Travis Aguiar RN [facility] [address] [place] [address] 07/26/2020 12:25:18 07/29/2020 11:52:45 Administration of SARS-CoV-2 antigen vaccine 829761956 Z23 [id number] [facility] [address] [place] [address] 09/15/2020 12:17:30 09/16/2020 14:03:52 Mixed hyperlipidemia 522235818 E78.2 10/18/2018 Managed with [facility]; refused statin therapy cholestero l, total 136 triglyceri debi 107 HDL cholestero l 33 LDL cholestero l calc 82 08/23/2020 cho 230 Trig 150 HDL 36 LDL 166 Agrees to re-start statin Pt informed of optimum health recommenda tions: 150 mins of aerobic exercise weekly 7-9 hrs of sleep 7-13 servings of fruit and vegetables each day 1/2 of body weight in oz of water daily Plant based diet Mixed anxi ety and depressive disorder 110043255 F41.8 Current regimen maintained Pt reports symptoms controlled RFs as appropriat e Subclinica l hypothyroidism 25486647 E02 06/23/2020 TSH 3.34 PCP had offered management ; pt refused Gastroesop hageal reflux disease 023010310 K21.9 Current regimen maintained Pt reports symptoms controlled RFs as appropriat e Body mass index 25-29 - overweight 303911327 Z68.29 -Pt advised of BMI: -Pt encouraged to eat a plant-base d diet, minimizing processed foods and portion control -Pt advised on the recommenda tions for routine exercise Tobacco user 902369233 Z 72.0 -Pt is a current smoker-Pt advised in the derogatory effects of smoking-Co unseling for smoking cessation completed Prediabetes 063168376 R7 3.03 06/23/2020 HA1C 5.7 -Pt advised in TLCs Chest pain 75314375 R07. 9 L chest pain off and on for 6months. Denies radiation to neck, arms etc., Reports taking Carafate helps sometimes stop smoking stop alcohol Avoid all breads, potatoes, cereal, pasta, rice, margarine, refined sugars, milk yogurt, ice cream, juices, soda (including diet), beer, and manmade or manufactur ed desserts. Enjoy steak, fish, chicken (no skin), pork, butter, vegetables , beans, nuts, whole eggs, cheese (low fat or skim), cream in your coffee. will send for cardiology evaluation Screening for malignant neoplasm of prostate [id number] Z12.5 refuses RENNY PSA 0.3 normal on 06/23/2020 Screening for malignant neoplasm of colon 585319061 Z12.11 50 y/o HM in need of colonoscop y Has been referred to [facility]logist Dept Reports has appt for 09/23/2020 at 1:00 PM [id number] JORGE CARTER NP [facility] [address] [place] [address] 09/23/2020 13:40:10 09/25/2020 15:04:47 Screening for malignant neoplasm of colon 705956833 Z12.11 MGM with colon cancer Mixed anxi ety and depressive disorder 327092146 F41.8 On sertraline Managed by primary care Mixed hyperlipidemia 267 520321 E78.2 On atorvastat inManaged by primary care Subclinica l hypothyroidism 02365760 E02 No medication sTSH 3.340 on 06/23/2020M anaged in primary care Tobacco user 361214519 Z 72.0 Strongly encouraged to discontinu e smoking Chest pain 38041432 R07. 9 Cardiology referral already sent by PCPWill facilitate scheduling [id number] Timothy Carey MD [facility] [address] [place] [address] 09/25/2020 14:29:16 09/25/2020 16:07:59 Mixed hyperlipidemia 625931105 E78.2 will double his atorvastat in and get other lipid profile Precordial pain 57140254 R07.2 Atypical angina:DD: CADVariabl e anginavaso spastic anginaAdvi sed to avoid energy drinks and quit smoking and cut down on Coffee intake Trying to give up smoking 781882703 Z72.0 advised to quit smoking [id number] Timothy Carey MD [facility] [address] [place] [address] 10/27/2020 16:03:25 10/29/2020 15:15:39 Atypical chest pain 182142505 R07.89 non cardiac in aetiology, will discontinu e nitro SL will refer for GI work up if negative then it can be treated as musculoske latal since it responding to advil in some occasion Gastroesop hageal reflux disease 884315592 K21.00 PPI trial for a month Dyslipidemia 396079122 E 78.5 continue on Atorvastat in 40 mg daily 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 9 L chest pain off and on for 6months. Denies radiation to neck, arms etc., Reports taking Carafate helps sometimes stop smoking stop alcohol Avoid all breads, potatoes, cereal, pasta, rice, margarine, refined sugars, milk yogurt, ice cream, juices, soda (including diet), beer, and manmade or manufactur ed desserts. Enjoy steak, fish, chicken (no skin), pork, butter, vegetables , beans, nuts, whole eggs, cheese (low fat or skim), cream in your coffee. seen by cardiology for evaluation cardiology feels its musculoske letalhad normal nuclear stress test and normal u/s trans echo Mixed anxi ety and depressive disorder 392451293 F41.8 Current regimen maintained Pt reports symptoms controlled RFs as appropriat e Subclinica l hypothyroidism 79858307 E02 06/23/2020 TSH 3.34 PCP had offered management ; pt refused Gastroesop hageal reflux disease 752650087 K21.9 Current regimen maintained Pt reports symptoms controlled RFs as appropriat e Body mass index 25-29 - overweight 090285087 Z68.29 -Pt advised of BMI: -Pt encouraged to eat a plant-base d diet, minimizing processed foods and portion control -Pt advised on the recommenda tions for routine exercise Tobacco user 697841490 Z 72.0 -Pt is a current smoker-Pt advised in the derogatory effects of smoking-Co unseling for smoking cessation completed Prediabetes 934195280 R7 3.03 06/23/2020 HA1C 5.7 -Pt advised in TLCs Screening for malignant neoplasm of prostate 472414244 Z12.5 refuses RENNY PSA 0.3 normal on 06/23/2020 Screening for malignant neoplasm of colon 626114292 Z12.11 50 y/o HM in need of colonoscop y Has been seen by Gastroente rologist DeptHas colonoscop y pending [id number] JORGE CARTER NP [facility] [address] [place] [address] 12/29/2020 14:23:15 12/30/2020 07:09:47 Gastroesophageal reflux disease 123108025 K21.9 Atypical chest pain completely resolved with pantoprazo le 40 mg daily [id number] SARAN Baer[facility] [address] [place] [address] 03/16/2021 11:35:09 03/17/2021 06:22:53 Subclinical hypothyroidism 08766578 E02 06/23/2020 TSH 3.34 PCP had offered management ; pt refused Mixed hyperlipidemia 267 833279 E78.2 08/23/2020 cho 230 Trig 150 HDL 36 LDL 166 Agrees to re-start statin Pt informed of optimum health recommenda tions: 150 mins of aerobic exercise weekly 7-9 hrs of sleep 7-13 servings of fruit and vegetables each day 1/2 of body weight in oz of water daily Plant based dietcardio logy [facility] Mixed anxi ety and depressive disorder 117445060 F41.8 Current regimen maintained Pt reports symptoms controlled RFs as appropriat e Chest pain 38674928 R07. 9 L chest pain off and on for months. Denies radiation to neck, arms etc., Reports taking Carafate helps sometimes stop smoking stop alcohol Avoid all breads, potatoes, cereal, pasta, rice, margarine, refined sugars, milk yogurt, ice cream, juices, soda (including diet), beer, and man-made or manufactur ed desserts. Enjoy steak, fish, chicken (no skin), pork, butter, vegetables , beans, nuts, whole eggs, cheese (low fat or skim), cream in your coffee. seen by cardiology for evaluation cardiology feels its musculoske letalhad normal nuclear stress test and normal u/s trans echo Gastroesop hageal reflux disease 564394468 K21.9 Current regimen maintained Pt reports symptoms controlled RFs as appropriat e Body mass index 25-29 - overweight 193146617 Z68.29 -Pt advised of BMI: 30.7 -Pt encouraged to eat a plant-base d diet, minimizing processed foods and portion control -Pt advised on the recommenda tions for routine exercise Tobacco user 474674573 Z 72.0 -Pt is a current smoker-Pt advised in the derogatory effects of smoking-Co unseling for smoking cessation completed Prediabetes 807412780 R7 3.03 06/23/2020 HA1C 5.7 -Pt advised in TLCs Screening for malignant neoplasm of prostate 991760409 Z12.5 refuses RENNY PSA 0.3 normal on 06/23/2020 Administra tion of influenza vaccine 54469437 Z23 [id number] Alise Saenz RN [facility] [address], [place] [address] 03/20/2021 10:26:54 03/22/2021 16:04:41 Administration of SARS-CoV-2 mRNA vaccine 4280798634 Z23 [id number] [facility] [address] [place] [address] 06/15/2021 11:43:25 06/17/2021 10:32:40 Mixed anxiety and depressive disorder 206883521 F41.8 Current regimen maintained Pt reports symptoms controlled RFs as appropriat e Mixed hyperlipidemia 267 781359 E78.2 08/23/2020 cho 230 Trig 150 HDL 36 LDL 166Patient stopped statinPt informed of optimum health recommenda tions: 150 mins of aerobic exercise weekly 7-9 hrs of sleep 7-13 servings of fruit and vegetables each day 1/2 of body weight in oz of water daily Plant based dietcardio logy sent Rx to [facility] x 1 year -patient not taking it Subclinica l hypothyroidism 97819074 E02 06/23/2020 TSH 3.34 PCP had offered management ; pt refused Gastroesop hageal reflux disease 536650635 K21.9 Current regimen maintained Pt reports symptoms controlled RFs as appropriat e Tobacco user 979314766 Z 72.0 -Pt is a current smoker-Pt advised in the derogatory effects of smoking-Co unseling for smoking cessation completed Prediabetes 362517249 R7 3.03 06/23/2020 HA1C 5.7 -Pt advised in TLCs Screening for malignant neoplasm of prostate 215911020 Z12.5 refuses RENNY PSA 0.3 normal on 06/23/2020 Body mass index 30+ - obesity 436774118 Z68.32 BMI 32-Pt encouraged to eat a plant-base d diet, minimizing processed foods and portion control-Pt advised on the recommenda tions for routine exercise Healthy Weight: {{4'10= 91-118 lbs 4'11= 94-123 lbs 5'= 97-127 lbs 5'1= 100-131 lbs 5'2= 104-135 5' 3= 107-140 lbs 5'4= 110-144 lbs 5'5= 115-149 lbs 5'6= 118-154 lbs 5'7= 121-158 lbs* 5'8= 125-163 lbs 5'9= 128-168 lbs 5'10= 132-173 lbs 5'11= 136-178 lbs 6'= 140-183 lbs 6'1= 144-188 lbs 6'2= 148-193 lbs 6'3= 152-199 lbs 6'4= 156-204 lbs}} Dyspnea 707402963 R06.00 occasional at rest brief episodeswo rse with smoking Posterior rhinorrhea 758 19902 R09.82 samples zyrtec 10mg daily Increased blood pressure 03258999 R03.0 b/p 128/92 L armreduce salt in your diet 50-60 minutes of aerobic physical activity 5-6 time per week lose weight 5-20% of current body weight if B/P remains elevated will start B/P meds [id number] SARAN [facility] [address] [place] [address] 09/14/2021 10:26:37 09/15/2021 10:59:37 Increased blood pressure 82964867 R03.0 b/p 120/80 L armreduce salt in your diet 50-60 minutes of aerobic physical activity 5-6 time per week lose weight 5-20% of current body weight if B/P remains elevated will start B/P meds Mixed anxi ety and depressive disorder 997463128 F41.8 Current regimen maintained Pt reports symptoms controlled RFs as appropriat e Mixed hyperlipidemia 267 654002 E78.2 08/23/2020 cho 230 Trig 150 HDL 36 LDL 166 06/15/2021 cho 268Trig 304HDL 33LDL 176to re-start Atorvastat in 40mg dailyPt informed of optimum health recommenda tions: 150 mins of aerobic exercise weekly 7-9 hrs of sleep 7-13 servings of fruit and vegetables each day 1/2 of body weight in oz of water daily Plant based dietcardio logy sent Rx to [facility] x 1 year -patient not taking it Subclinica l hypothyroidism 90324084 E02 06/23/2020 TSH 3.34032021 TSH 5.180PCP had offered management ; pt refused Gastroesop hageal reflux disease 968294496 K21.9 Pt doesnt feel he needs this med anymore-wi ll use prnPt reports symptoms controlled RFs as appropriat e Tobacco user 604010317 Z 72.0 -Pt stopped smoking 2 months ago-Pt advised in the derogatory effects of smoking-Co unseling for smoking cessation completed Prediabetes 060637687 R7 3.03 06/23/2020 HA1C 5.73/ 22 HA1C 5.9-Pt advised in TLCs Screening for malignant neoplasm of prostate 725289912 Z12.5 refuses RENNY PSA 0.3 normal on 06/23/2020 Body mass index 30+ - obesity 177910905 Z68.32 BMI 31.2-Pt encouraged to eat a plant-base d diet, minimizing processed foods and portion control-Pt advised on the recommenda tions for routine exerciseHe althy Weight: {{4'10= 91-118 lbs 4'11= 94-123 lbs 5'= 97-127 lbs 5'1= 100-131 lbs 5'2= 104-135 5' 3= 107-140 lbs 5'4= 110-144 lbs 5'5= 115-149 lbs 5'6= 118-154 lbs 5'7= 121-158 lbs* 5'8= 125-163 lbs 5'9= 128-168 lbs 5'10= 132-173 lbs 5'11= 136-178 lbs 6'= 140-183 lbs 6'1= 144-188 lbs 6'2= 148-193 lbs 6'3= 152-199 lbs 6'4= 156-204 lbs}} Dyspnea 406348759 R06.00 occasional at rest brief episodeswo rse with smoking Depression screening 171 142334 Z13.31 negative [id number] SARAN [facility] [address] [place] [address] 12/21/2021 11:44:51 12/23/2021 11:05:28 Mixed hyperlipidemia 215508616 E78.2 08/23/2020 cho 230 Trig 150 HDL 36 LDL 00519/14/2 022cho 268Trig 304HDL 33LDL 176to re-start Atorvastat in 40mg dailyPt informed of optimum health recommenda tions: 150 mins of aerobic exercise weekly 7-9 hrs of sleep 7-13 servings of fruit and vegetables each day 1/2 of body weight in oz of water daily Plant based dietcardio logy sent Rx to [facility] year -patient is now taking it Increased blood pressure 47504605 R03.0 reduce salt in your diet 50-60 minutes of aerobic physical activity 5-6 time per week lose weight 5-20% of current body weight if B/P remains elevated will start B/P meds Mixed anxi ety and depressive disorder 519437583 F41.8 Current regimen maintained Pt reports symptoms controlled RFs as appropriat e Gastroesop hageal reflux disease 724520562 K21.9 Pt doesnt feel he needs this med anymore-wi ll use prnPt reports symptoms controlled RFs as appropriat ePatient has metoclopra stacia 10mg at home Subclinica l hypothyroidism 75641416 E02 06/23/2020 TSH 3.3403/2021 TSH 5.180PCP had offered management ; pt refused Tobacco user 010358868 Z 72.0 -Pt stopped smoking 5 months ago-Pt advised in the derogatory effects of smoking-Co unseling for smoking cessation completed Prediabetes 068741272 R7 3.03 06/23/2020 HA1C 5.73/ 22 HA1C 5.9-Pt advised in TLCs Screening for malignant neoplasm of prostate 778866365 Z12.5 refuses RENNY PSA 0.3 normal on 06/23/2020 PSA 0.2 normal on 06/15/2021 Body mass index 30+ - obesity 058929520 Z68.32 BMI 30-Pt encouraged to eat a plant-base d diet, minimizing processed foods and portion control-Pt advised on the recommenda tions for routine exerciseHe althy Weight: {{4'10= 91-118 lbs 4'11= 94-123 lbs 5'= 97-127 lbs 5'1= 100-131 lbs 5'2= 104-135 5' 3= 107-140 lbs 5'4= 110-144 lbs 5'5= 115-149 lbs 5'6= 118-154 lbs 5'7= 121-158 lbs* 5'8= 125-163 lbs 5'9= 128-168 lbs 5'10= 132-173 lbs 5'11= 136-178 lbs 6'= 140-183 lbs 6'1= 144-188 lbs 6'2= 148-193 lbs 6'3= 152-199 lbs 6'4= 156-204 lbs}} Dyspnea 673709912 R06.00 occasional at rest brief episodeswo rse with smokinguse s albuterol mdi prn Depression screening 171 108883 Z13.31 negative Administra tion of influenza vaccine 04948317 Z23 [id number] Alise Saenz RN [facility] [address] [place] [address] 02/08/2022 11:53:40 03/05/2022 16:03:21 Administration of SARS-CoV-2 mRNA vaccine 9398714083 Z23 [id number] Chris Ortega, [facility] [address] [place] [address] 03/01/2022 11:28:46 03/03/2022 16:07:17 Increased blood pressure 00567392 R03.0 B/P 130/88redu ce salt in your diet 50-60 minutes of aerobic physical activity 5-6 time per week lose weight 5-20% of current body weight if B/P remains elevated will start B/P meds Mixed hyperlipidemia 267 236252 E78.2 08/23/2020 cho 230 Trig 150 HDL 36 LDL 33249/18/05 022cho 268Trig 304HDL 33LDL 176to re-start Atorvastat in 40mg dailyPt informed of optimum health recommenda tions: 150 mins of aerobic exercise weekly 7-9 hrs of sleep 7-13 servings of fruit and vegetables each day 1/2 of body weight in oz of water daily Plant based dietcardio logy sent Rx to [facility] x 1 year -patient is now taking it Prediabetes 061349111 R7 3.03 06/23/2020 HA1C 5.73/ 22 HA1C 5.9-Pt advised in TLCs Mixed anxi ety and depressive disorder 321350553 F41.8 Current regimen maintained Pt reports symptoms controlled RFs as appropriat e Gastroesop hageal reflux disease 588152829 K21.9 Pt doesnt feel he needs this med anymore-wi ll use prnPt reports symptoms controlled RFs as appropriat ePatient has metoclopra mide 10mg at home Subclinica l hypothyroidism 91964427 E02 06/23/2020 TSH 3.34032021 TSH 5.180PCP had offered management ; pt refused Tobacco user 166502466 Z 72.0 -Pt stopped smoking 5 months ago-Pt advised in the derogatory effects of smoking-Co unseling for smoking cessation completed Screening for malignant neoplasm of prostate 697134137 Z12.5 refuses RENNY PSA 0.3 normal on 06/23/2020 PSA 0.2 normal on 06/15/2021 Body mass index 30+ - obesity 188640916 Z68.32 BMI 30-Pt encouraged to eat a plant-base d diet, minimizing processed foods and portion control-Pt advised on the recommenda tions for routine exerciseHe althy Weight: {{4'10= 91-118 lbs 4'11= 94-123 lbs 5'= 97-127 lbs 5'1= 100-131 lbs 5'2= 104-135 5' 3= 107-140 lbs 5'4= 110-144 lbs 5'5= 115-149 lbs 5'6= 118-154 lbs 5'7= 121-158 lbs* 5'8= 125-163 lbs 5'9= 128-168 lbs 5'10= 132-173 lbs 5'11= 136-178 lbs 6'= 140-183 lbs 6'1= 144-188 lbs 6'2= 148-193 lbs 6'3= 152-199 lbs 6'4= 156-204 lbs}} Dyspnea 329649835 R06.00 occasional at rest brief episodeswo rse with smokinguse s albuterol mdi prn Depression screening 171 779873 Z13.31 PHQ 2-9 negative Mental hea [facility] screening 459213047 Z13.39 CHRISTIAN-7 negative [id number] Chris Ortega, [facility] [address] [place] [address] 06/28/2022 14:02:42 07/01/2022 09:11:41 Mixed hyperlipidemia 376117004 E78.2 08/23/2020 cho 230 Trig 150 HDL 36 LDL 43370/14/2 022cho 268Trig 304HDL 33LDL 176to re-start Atorvastat in 40mg dailyPt informed of optimum health recommenda tions: 150 mins of aerobic exercise weekly 7-9 hrs of sleep 7-13 servings of fruit and vegetables each day 1/2 of body weight in oz of water daily Plant based dietcardio logy sent Rx to [facility] x 1 year -patient is now taking it Mixed anxi ety and depressive disorder 943175771 F41.8 Current regimen maintained Pt reports symptoms controlled RFs as appropriat e Body mass index 30+ - obesity 056280920 Z68.32 BMI 30-Pt encouraged to eat a plant-base d diet, minimizing processed foods and portion control-Pt advised on the recommenda tions for routine exerciseHe althy Weight: {{4'10= 91-118 lbs 4'11= 94-123 lbs 5'= 97-127 lbs 5'1= 100-131 lbs 5'2= 104-135 5' 3= 107-140 lbs 5'4= 110-144 lbs 5'5= 115-149 lbs 5'6= 118-154 lbs 5'7= 121-158 lbs* 5'8= 125-163 lbs 5'9= 128-168 lbs 5'10= 132-173 lbs 5'11= 136-178 lbs 6'= 140-183 lbs 6'1= 144-188 lbs 6'2= 148-193 lbs 6'3= 152-199 lbs 6'4= 156-204 lbs}} Dyspnea 088710823 R06.00 occasional at rest brief episodeswo rse with smokinguse s albuterol mdi prn-still has at home Gastroesop hageal reflux disease 361135102 K21.9 Pt doesnt feel he needs this med anymore-wi ll use prnPt reports symptoms controlled RFs as appropriat ePatient has metoclopra mide 10mg at home Subclinica l hypothyroidism 60551108 E02 06/23/2020 TSH 3.3402021 TSH 5.180PCP had offered management ; pt refused Screening for malignant neoplasm of prostate 587103605 Z12.5 refuses RENNY PSA 0.3 normal on 06/23/2020 PSA 0.2 normal on 06/15/2021 Depression screening 171 040961 Z13.31 PHQ 2-9 negative Mental [facility] screening 348237707 Z13.39 CHRISTIAN-7 negative Recurrent herpes simplex labialis 433516344 B00.1 Patient voices has had lip lesions since he was a childrefus es testing at this timedenies any genital outbreaksM ay want testing in the futuresign ificant other + for HSV2 [id number] PARTH GOLDEN [facility] [address] [place] [address] 09/27/2022 14:32:20 09/28/2022 09:06:32 Mixed anxiety and depressive disorder 191730128 F41.8 controlled Pain of [facility] 41721903 M25.519 acute on chronic pain after pushing dog offpex: Normal ROM, normal strength, pain elicited over palpation of rotator cuff. + can test, - NSAID x 1-2 weeks- f/u one month if pain persists for PT referral +/- xray Obesity 497048154 E66.9 BMI 31.2advise d cutting down on sweets and fruitsincr ease veggies and lean proteins Hyperlipidemia 85416197 E78.5 compliant on statinrevi ewed labs with patient during visithe will obtain fasting labs at next visit [id number] SARAN Baer-[facility] [address] [place] [address] 12/27/2022 13:50:10 12/31/2022 11:35:13 Body mass index 30+ - obesity 651725333 Z68.32 BMI 30-Pt encouraged to eat a plant-base d diet, minimizing processed foods and portion control-Pt advised on the recommenda tions for routine exerciseHe althy Weight: {{4'10= 91-118 lbs 4'11= 94-123 lbs 5'= 97-127 lbs 5'1= 100-131 lbs 5'2= 104-135 5' 3= 107-140 lbs 5'4= 110-144 lbs 5'5= 115-149 lbs 5'6= 118-154 lbs 5'7= 121-158 lbs* 5'8= 125-163 lbs 5'9= 128-168 lbs 5'10= 132-173 lbs 5'11= 136-178 lbs 6'= 140-183 lbs 6'1= 144-188 lbs 6'2= 148-193 lbs 6'3= 152-199 lbs 6'4= 156-204 lbs}} Increased blood pressure 46284933 R03.0 B/P 130/90redu ce salt in your diet 50-60 minutes of aerobic physical activity 5-6 time per week lose weight 5-20% of current body weight if B/P remains elevated will start B/P meds Mixed anxi ety and depressive disorder 729568349 F41.8 Current regimen maintained Pt reports symptoms controlled RFs as appropriat e Mixed hyperlipidemia 267 661469 E78.2 08/23/2020 cho 230 Trig 150 HDL 36 LDL 56747/14/2 022cho 268Trig 304HDL 33LDL 176continu e Atorvastat in 40mg dailyPt informed of optimum health recommenda tions: 150 mins of aerobic exercise weekly 7-9 hrs of sleep 7-13 servings of fruit and vegetables each day 1/2 of body weight in oz of water daily Plant based diet Dyspnea 041865019 R06.00 occasional at rest brief episodeswo rse with smokinguse s albuterol mdi prn-still has at home Gastroesop hageal reflux disease 856666377 K21.9 Pt doesnt feel he needs this med anymore-wi ll use prnPt reports symptoms controlled RFs as appropriat ePatient has metoclopra mide 10mg at home Subclinica l hypothyroidism 67976921 E02 06/23/2020 TSH 3.3403/2021 TSH 5.180PCP had offered management ; pt refused Screening for malignant neoplasm of prostate 293612195 Z12.5 refuses RENNY PSA 0.3 normal on 06/23/2020 PSA 0.2 normal on 06/15/2021 Recurrent herpes simplex labialis 791434293 B00.1 Patient voices has had lip lesions since he was a childrefus es testing at this timedenies any genital outbreaksM ay want testing in the futuresign ificant other + for HSV2 Depression screening 171 595761 Z13.31 PHQ 2-9 negative Mental hea [facility] screening 716607501 Z13.39 CHRISTIAN-7 negative Administra tion of influenza vaccine 25632163 Z23 Pain of [place] 73091720 M25.519 acute on chronic pain after pushing dog offpex: Normal ROM, normal strength, pain elicited over palpation of rotator cuff. + can test,-was tried on Naprosyn 500mg bid did not help- f/u one month if pain persists for PT referral +/- xray Obesity 483558849 E66.9 BMI 31.2advise d cutting down on sweets and fruitsincr ease veggies and lean proteins [id number] SARAN [facility] [address] [place] [address] 2023 14:05:14 06/30/2023 12:39:24 Body mass index 30+ - obesity 020927909 Z68.32 BMI 30.8-Pt encouraged to eat a plant-base d diet, minimizing processed foods and portion control-Pt advised on the recommenda tions for routine exerciseHe althy Weight: {{4'10= 91-118 lbs 4'11= 94-123 lbs 5'= 97-127 lbs 5'1= 100-131 lbs 5'2= 104-135 5' 3= 107-140 lbs 5'4= 110-144 lbs 5'5= 115-149 lbs 5'6= 118-154 lbs 5'7= 121-158 lbs* 5'8= 125-163 lbs 5'9= 128-168 lbs 5'10= 132-173 lbs 5'11= 136-178 lbs 6'= 140-183 lbs 6'1= 144-188 lbs 6'2= 148-193 lbs 6'3= 152-199 lbs 6'4= 156-204 lbs}} Subclinica l hypothyroidism 96187055 E02 06/23/2020 TSH 3.3403/2021 TSH 5.5041012/27 TSH 3.5000PCP had offered management ; pt refused Mixed hyperlipidemia 267 236404 E78.2 08/23/2020 cho 230 Trig 150 HDL 36 LDL 72165//2 022cho 268Trig 304HDL 33LDL 176 12/27/2022 cho 164trig 118HDL 42LDL 114continu e Atorvastat in 40mg dailyPt informed of optimum health recommenda tions: 150 mins of aerobic exercise weekly 7-9 hrs of sleep 7-13 servings of fruit and vegetables each day 1/2 of body weight in oz of water daily Plant based diet Mixed anxi ety and depressive disorder 111240043 F41.8 Current regimen maintained Pt reports symptoms controlled RFs as appropriat e Obesity 619931284 E66.9 BMI 30.8advise d cutting down on sweets and fruitsincr ease veggies and lean proteins Increased blood pressure 92779696 R03.0 B/P 130/90redu ce salt in your diet 50-60 minutes of aerobic physical activity 5-6 time per week lose weight 5-20% of current body weight if B/P remains elevated will start B/P meds Gastroesop hageal reflux disease 410794318 K21.9 Pt doesnt feel he needs this med anymore-wi ll use prnPt reports symptoms controlled RFs as appropriat ePatient has metoclopra mide 10mg at home Recurrent herpes simplex labialis 449169972 B00.1 Patient voices has had lip lesions since he was a childrefus es testing at this timedenies any genital outbreaksM ay want testing in the futuresign ificant other + for HSV2 Pain of [facility] 85675847 M25.519 acute on chronic pain after pushing dog offpex: Normal ROM, normal strength, pain elicited over palpation of rotator cuff. + can test,-was tried on Naprosyn 500mg bid did not help- f/u one month if pain persists for PT referral +/- xray-pt has no insurance/ wishes to wait Depression screening 171 711885 Z13.31 PHQ 2-9 negative Mental [facility] screening 416554486 Z13.39 CRHISTIAN-7 negative Pterygium of right eye 1841219793 00611 H11.001 will need to see opth [id number] SARAN [facility] [address] [place] [address] 12/26/2023 15:31:23 12/30/2023 16:19:40 Mixed hyperlipidemia [id number] E78.2 08/23/2020 cho 230 Trig 150 HDL 36 LDL 52322/14/2 022cho 268Trig 304HDL 33LDL 176 12/27/2022 cho 164trig 118HDL 42LDL 114continu e Atorvastat in 40mg dailyPt informed of optimum health recommenda tions: 150 mins of aerobic exercise weekly 7-9 hrs of sleep 7-13 servings of fruit and vegetables each day 1/2 of body weight in oz of water daily Plant based diet Subclinica l hypothyroidism [id number] E02 06/23/2020 TSH 3.3403/2021 TSH 5.6235412/27 TSH 3.5000PCP had offered management ; pt refused Mixed anxi ety and depressive disorder [id number] F41.8 Current regimen maintained Pt reports symptoms controlled RFs as appropriat e Increased blood pressure 92501690 R03.0 reduce salt in your diet 50-60 minutes of aerobic physical activity 5-6 time per week lose weight 5-20% of current body weight if B/P remains elevated will start B/P meds Obesity 160459737 E66.9 BMI 30.6advise d cutting down on sweets and fruitsincr ease veggies and lean proteins Body mass index 30+ - obesity 366034298 Z68.32 BMI 30.8-Pt encouraged to eat a plant-base d diet, minimizing processed foods and portion control-Pt advised on the recommenda tions for routine exerciseHe althy Weight: {{4'10= 91-118 lbs 4'11= 94-123 lbs 5'= 97-127 lbs 5'1= 100-131 lbs 5'2= 104-135 5' 3= 107-140 lbs 5'4= 110-144 lbs 5'5= 115-149 lbs 5'6= 118-154 lbs 5'7= 121-158 lbs* 5'8= 125-163 lbs 5'9= 128-168 lbs 5'10= 132-173 lbs 5'11= 136-178 lbs 6'= 140-183 lbs 6'1= 144-188 lbs 6'2= 148-193 lbs 6'3= 152-199 lbs 6'4= 156-204 lbs}} Pain of sh oulder region [id number] M25.519 acute on chronic pain after pushing dog offpex: Normal ROM, normal strength, pain elicited over palpation of rotator cuff. + can test,-was tried on Naprosyn 500mg bid did not help- f/u one month if pain persists for PT referral +/- xray-pt has no insurance/ wishes to wait Recurrent herpes simplex labialis [id number] B00.1 Patient voices has had lip lesions since he was a childrefus es testing at this timedenies any genital outbreaksM ay want testing in the futuresign ificant other + for HSV2 Gastroesop hageal reflux disease 422597020 K21.9 Pt doesnt feel he needs this med anymore-wi ll use prnPt reports symptoms controlled RFs as appropriat ePatient has metoclopra mide 10mg at home Pterygium of right eye [id number] 50393 H11.001 will need to see opth Administra tion of influenza vaccine 00059236 Z23 [id number] Heike Yañez MA [facility] [address] 4 01/11/2024 09:56:29 01/12/2024 10:22:40 Mixed hyperlipidemia 252392225 E78.2 08/23/2020 cho 230 Trig 150 HDL 36 LDL 04499/14/ 022cho 268Trig 304HDL 33LDL 176 12/27/2022 cho 164trig 118HDL 42LDL 114continu e Atorvastat in 40mg dailyPt informed of optimum health recommenda tions: 150 mins of aerobic exercise weekly 7-9 hrs of sleep 7-13 servings of fruit and vegetables each day 1/2 of body weight in oz of water daily Plant based diet [id number] REY Baer [facility] [address] [address] 4 01/20/2024 10:36:44 01/27/2024 15:41:28 Follow-up visit [id number] Z09 53 y/o HM presents for follow up ER visit on 01/14/2024 to [facility] from a ladder fall. 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 He was trying to get something down when the ladder gave and he fell hitting his anterior chest wall along a wooden gait. He did not hit his head or lost consciousn ess. He had no neck pain. He had moderate pain to his left chest wall that radiates across his chest with any movement or deep breathing. He had labs and CT of chest. His labs showed increased WBC. CT of chest /abdomen showed minimally displaced/ nondisplac ed fractures of left posterolat eral 5th through 7th ribs. He had no pneumothor ax, pneumoperi cardium, or any other concerning traumatic process in abdomen or pelvis. He was discharged with incentive spirometry and pain medication . Fracture o f multiple ribs 8397857 S22.42XD 53 y/o HM presents for follow up ER visit on 01/14/2024 to [facility] from a ladder fall. 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 He was trying to get something down when the ladder gave and he fell hitting his anterior chest wall along a wooden gait. He did not hit his head or lost consciousn ess. He had no neck pain. He had moderate pain to his left chest wall that radiates across his chest with any movement or deep breathing. He had labs and CT of chest. His labs showed increased WBC. CT of chest /abdomen showed minimally displaced/ nondisplac ed fractures of left posterolat eral 5th through 7th ribs. He had no pneumothor ax, pneumoperi cardium, or any other concerning traumatic process in abdomen or pelvis. He was discharged with incentive spirometry and pain medication . He reports continued pain. It hurts to take a deep breath but he is using incentive spirometry as directed. He overdid it the day after leaving the hospital got up on a tractor and of course had a lot of discomfort the following day. He is aware he has to rest. He has finished his Hydrocodon e/acetamin ophen. He voices that pill helps a lot with his pain. I have advised the patient will give #15 of those but he is to use sporadical ly for severe pain and take ibuprofen as directed.c onsent for controlled substance Body mass index 30+ - obesity 600341384 Z68.32 BMI 30.8-Pt encouraged to eat a plant-base d diet, minimizing processed foods and portion control-Pt advised on the recommenda tions for routine exerciseHe althy Weight: {{4'10= 91-118 lbs 4'11= 94-123 lbs 5'= 97-127 lbs 5'1= 100-131 lbs 5'2= 104-135 5' 3= 107-140 lbs 5'4= 110-144 lbs 5'5= 115-149 lbs 5'6= 118-154 lbs 5'7= 121-158 lbs* 5'8= 125-163 lbs 5'9= 128-168 lbs 5'10= 132-173 lbs 5'11= 136-178 lbs 6'= 140-183 lbs 6'1= 144-188 lbs 6'2= 148-193 lbs 6'3= 152-199 lbs 6'4= 156-204 lbs}} [id number] PAR[facility] GOLDEN [facility] [address] [place] [address] 07/16/2024 14:15:48 07/17/2024 16:06:16 Mixed hyperlipidemia [id number] E78.2 refillswil l f/u in 3-4 months fasting for labs and f/u Mixed anxi ety and depressive disorder [id number] F41.8 controlled on sertraline . denies s/e. open to weaning in future. will f/u PCP. Administra tion of pneumococcal vaccine [id number] Z23 refill Overweight 558137381 E66 .3 weight loss since last visitencou raged to continue positive lifestyle changes. Health Concerns Section Related Observation LastModified by Organization Detai ls LastModified Time None Recorded Concern Status LastModified by Organization Details LastModified Time None Recorded Advance Directives Directive N: Payers Encounter Date Sequence Insurance Name Policy Number Policy Cain Covered Member ID Cain Member ID Guarantor Name [id number] 2 *SELF PAY* Carmen onelzbietao Luis 12/26/2023 1 [facility] ON OR AFTER 10/02/20 (MEDICAID REPLACEMENT - HMO) Joshua Luis [id number] Joshua Luis 01/11/2024 2 *SELF PAY* Le onardo Luis 01/11/2024 1 [facility] ON OR AFTER 10/02/20 (MEDICAID REPLACEMENT - HMO) Joshua Luis [id number] Joshua Luis 01/20/2024 2 *SELF PAY* Le onardo Luis 01/20/2024 1 [facility] ON OR AFTER 10/02/20 (MEDICAID REPLACEMENT - HMO) Joshua Luis [id number] Joshua Luis 07/16/2024 1 [facility] ON OR AFTER 20 (MEDICAID REPLACEMENT - HMO) Joshua Luis [id number] Joshua Luis Notes Date Note Type Note Provider Name and Address Organization Details Recorded Time 06/27/19 24 text/htm l Angina/Chest PainReported bypatient.Location:left atrium chest; arm; jaw; epigastrium; left substernal; does not radiate Quality:pressure;tightness Severity:not limiting Duration:lasts minutes; typical duration is <5 minutes Onset/Timing:has noted for months; began on 03/2020; occurs daily; intermittent Context:exertional;at rest;postprandial;occurs with emotional stress;occurs with physical stress Alleviating Factors:relieved with rest; relieved with antacid; relieved with medication; carafate Aggravating Factors:worse with stress/emotional upset Associated Symptoms:no dyspnea; no decrease in exercise capacity; no fatigue; no nocturnal episodes; no resting episodes; no associated palpitations; no associated dizzinessAnxiety/DepressionRepo rted bypatient.Quality:symptoms improved Severity:denies suicidal ideations; able to maintain relationships; does not interfere with activities of daily living Duration:stablizing Context:no major life stressors;tobacco use; History of alcohol use Associated Symptoms:denies homicidal ideations; no significant weight gain; no significant weight loss; no visual/auditory hallucinations; no delusions; no shortness of breath; mood good; no anxiety; no crying spells; no panic; no isolation; sleeping well; appetite good; energy good; no apathy; maintaining functionalityCardiology VisitReported bypatient.chest painno chest pain; location; non-radiating; no pain with exertion SOBno shortness of breath; no SOB during exertion Orthopneano orthopnea; not using extra pillows or sleeping upright (orthopnea) PNDno awakening at night short of breath (pnd) dizzinessno dizziness Syncopeno fainting (syncope) Palpitationsno palpitationsDyspneaReported bypatient.Quality:dyspnea;can't catch breath Severity:mild Duration:sensation/episode lasts 1 minutes; for 2 months Onset/Timing:weekly Context:at rest Associated Symptoms:no chest pain; no palpitations; no orthopnea; no PND; no fever; no chills; no wheezing; no dietary indiscretion; no sputum production; no hemoptysis; no weight gain; no dyspepsia; no decrease in exercise capacityHyperlipidemiaReported bypatient.Type of hyperlipidemia:combined Duration:chronic Prior Tests:06/15/2021 cho 268 Trig 304 HDL 33 LDL 176 Control:not at goal Compliance:compliant; compliant with diet; exercises Complications:no coronary artery disease; no peripheral artery disease;cardiovascular disease Risk Factors:hypertension;obesity;lo w HDL levelHypertension F/UReported bypatient.Associated Symptoms:no dizziness; no lightheadedness; no chest pain; no shortness of breath; no palpitations; no edema; no calf pain with exertion Lifestyle:limiting/avoiding salt;not exercising regularly Medications:taking medications as directed; no side effects from medicationOsteoarthritis MonitoringReported bypatient.Associated Symptoms:no fever; no tooth problems; no mouth sores or pain; no pain with respiration; no cough; no shortness of breath; no GI symptoms; no symptoms Functional status: Activities of Daily Livingno difficulty walking unassisted; able to walk; able to: ; driving not impairedReflux/GERDReported bypatient.SymptomsAsymptomatic; no difficulty swallowing; no pain swallowing; no postprandial pain; heartburn Quality:pressure Severity:improving;mild; occasional Context:no drug/alcohol abuse; no drug alcohol withdrawal;smoker 1/2PPD;related to spicy foods;related to stress; History of alcohol abuse stopped 11 years ago Alleviating Factors:medication; non-spicy foods; Metoclopramide Associated Symptoms:no frequent coughing; no feeling of fullness/mass in throat; no hoarseness; no food getting stuck; no belching/burping; no nausea; no vomiting; not vomiting blood; no regurgitation; no shortness of breath; no chest pain; no heartburn; no difficulty swallowing; no pain when swallowing; no bad taste; no decreased appetite; no weight loss; no black/tarry stools; no fatigue; no throat pain 52 y/o HM presents for refill for meds. He feels well. He takes his chronic medicines without problems. He has only been taking Sertraline and Zyrtec. He stopped Levothyroxine as he felt that when he took that pill it bothered his throat. He denies any hypothyroidism symptoms. He doesnt wish to f/u on finger contracture. He had colonoscopy he is to have repeat in 10 years.He had voiced that he had been having a little shortness of breath but non debilitating. He denies any pressure. He saw cardiology for. L chest pain off and on for 6 months.Denies radiation to neck, arms etc., He had a normal stress and u/s echo. He was given nitroglycerine for prn use which he voices has not needed. He is taking atorvastatin 40mg daily. now.He stopped smoking. Feels a lot better. He doesnt want any more refills of metoclopramide. He doesnt have GERD symptoms like before. He really is not taking it now. 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 He voices he has no lesions. 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 He doesnt want to have testing done at this time. He is aware that this office has never tested him for HSV infections. JUAREZ Baer Attn: Accounting,[address] [place], [address], [facility] 2023 16:19:30 12/26/19 24 text/htm l Angina/Chest PainReported bypatient.Location:left atrium chest; arm; jaw; epigastrium; left substernal; does not radiate Quality:pressure;tightness Severity:not limiting Duration:lasts minutes; typical duration is <5 minutes Onset/Timing:has noted for months; began on 03/2020; occurs daily; intermittent Context:exertional;at rest;postprandial;occurs with emotional stress;occurs with physical stress Alleviating Factors:relieved with rest; relieved with antacid; relieved with medication; carafate Aggravating Factors:worse with stress/emotional upset Associated Symptoms:no dyspnea; no decrease in exercise capacity; no fatigue; no nocturnal episodes; no resting episodes; no associated palpitations; no associated dizzinessAnxiety/DepressionRepo rted bypatient.Quality:symptoms improved Severity:denies suicidal ideations; able to maintain relationships; does not interfere with activities of daily living Duration:stablizing Context:no major life stressors;tobacco use; History of alcohol use Associated Symptoms:denies homicidal ideations; no significant weight gain; no significant weight loss; no visual/auditory hallucinations; no delusions; no shortness of breath; mood good; no anxiety; no crying spells; no panic; no isolation; sleeping well; appetite good; energy good; no apathy; maintaining functionalityCardiology VisitReported bypatient.chest painno chest pain; location; non-radiating; no pain with exertion SOBno shortness of breath; no SOB during exertion Orthopneano orthopnea; not using extra pillows or sleeping upright (orthopnea) PNDno awakening at night short of breath (pnd) dizzinessno dizziness Syncopeno fainting (syncope) Palpitationsno palpitationsDyspneaReported bypatient.Quality:dyspnea;can't catch breath Severity:mild Duration:sensation/episode lasts 1 minutes; for 2 months Onset/Timing:weekly Context:at rest Associated Symptoms:no chest pain; no palpitations; no orthopnea; no PND; no fever; no chills; no wheezing; no dietary indiscretion; no sputum production; no hemoptysis; no weight gain; no dyspepsia; no decrease in exercise capacityHyperlipidemiaReported bypatient.Type of hyperlipidemia:combined Duration:chronic Prior Tests:06/15/2021 cho 268 Trig 304 HDL 33 LDL 176 Control:not at goal Compliance:compliant; compliant with diet; exercises Complications:no coronary artery disease; no peripheral artery disease;cardiovascular disease Risk Factors:hypertension;obesity;lo w HDL levelHypertension F/UReported bypatient.Associated Symptoms:no dizziness; no lightheadedness; no chest pain; no shortness of breath; no palpitations; no edema; no calf pain with exertion Lifestyle:limiting/avoiding salt;not exercising regularly Medications:taking medications as directed; no side effects from medicationOsteoarthritis MonitoringReported bypatient.Associated Symptoms:no fever; no tooth problems; no mouth sores or pain; no pain with respiration; no cough; no shortness of breath; no GI symptoms; no symptoms Functional status: Activities of Daily Livingno difficulty walking unassisted; able to walk; able to: ; driving not impairedReflux/GERDReported bypatient.SymptomsAsymptomatic; no difficulty swallowing; no pain swallowing; no postprandial pain; heartburn Quality:pressure Severity:improving;mild; occasional Context:no drug/alcohol abuse; no drug alcohol withdrawal;smoker 1/2PPD;related to spicy foods;related to stress; History of alcohol abuse stopped 11 years ago Alleviating Factors:medication; non-spicy foods; Metoclopramide Associated Symptoms:no frequent coughing; no feeling of fullness/mass in throat; no hoarseness; no food getting stuck; no belching/burping; no nausea; no vomiting; not vomiting blood; no regurgitation; no shortness of breath; no chest pain; no heartburn; no difficulty swallowing; no pain when swallowing; no bad taste; no decreased appetite; no weight loss; no black/tarry stools; no fatigue; no throat pain 53 y/o HM presents for refill for meds. He feels well. He takes his chronic medicines without problems. He has only been taking Sertraline and Zyrtec. He stopped Levothyroxine as he felt that when he took that pill it bothered his throat. He denies any hypothyroidism symptoms. He doesnt wish to f/u on finger contracture. He had colonoscopy he is to have repeat in 10 years.He had voiced that he had been having a little shortness of breath but non debilitating. He denies any pressure. He saw cardiology for L chest pain off and on for 6 months.Denies radiation to neck, arms etc., He had a normal stress and u/s echo. He was given nitroglycerine for prn use which he voices has not needed. He is taking atorvastatin 40mg daily. now.He stopped smoking. Feels a lot better. He doesnt want any more refills of metoclopramide. He doesnt have GERD symptoms like before. He really is not taking it now. 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 He voices he has no lesions. 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 He doesnt want to have testing done at this time. He is aware that this office has never tested him for HSV infections.Patient wants to get influenza vaccine. He has no contraindications. REY Baer Attn: Accounting,[address] [facility] [place], [place], [address], [facility] 12/26/2023 17:33:55 01/20/20 24 text/htm l 53 y/o HM presents for follow up ER visit on 01/14/2024 to [facility] from a ladder fall. 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 He was trying to get something down when the ladder gave and he fell hitting his anterior chest wall along a wooden gait. He did not hit his head or lost consciousness. He had no neck pain. He had moderate pain to his left chest wall that radiates across his chest with any movement or deep breathing. He had labs and CT of chest. His labs showed increased WBC. CT of chest /abdomen showed minimally displaced/nondisplaced fractures of left posterolateral 5th through 7th ribs. He had no pneumothorax, pneumopericardium, or any other concerning traumatic process in abdomen or pelvis. He was discharged with incentive spirometry and pain medication. He reports continued pain. It hurts to take a deep breath but he is using incentive spirometry as directed. He overdid it the day after leaving the hospital got up on a tractor and of course had a lot of discomfort the following day. He is aware he has to rest. He has finished his Hydrocodone/acetaminophen. He voices that pill helps a lot with his pain. I have advised the patient will give #15 of those but he is to use sporadically for severe pain and take ibuprofen as directed. Chris Ortega [facility] Attn: Accounting,[address] [facility] [place], [place], [address], [facility] 01/20/2024 12:08:13 07/17/19 25 text/htm l 54 y/o HM here for refills sertraline: he feels good on current medication. He is open to weaning off slowly with pcp. statin: states he takes it daily. He stopped smoking in 2021 and stopped drinking alcohol. He has tried to exercise and is making better diet choices. He is not fasting today. agrees to prevnar 20, no PAR[facility] BEAL Attn: Accounting,[address] [facility] [place], [place], [address], [place] [facility] 07/16/2024 15:04:23
[2024-07-31 13:47] LABS: Alanine Aminotransferase 25 U/L (6-50); Albumin Level 4.5 g/dL (3.5-5.1); Alkaline Phosphatase 67 U/L (38-126); Anion Gap 10 mmol/L (4-12); Aspartate Amino Transferase 22 U/L (17-59); Bilirubin,Total 0.5 mg/dL (0.2-1.3); Blood Urea Nitrogen 20 mg/dL (9-20); Calcium 8.8 mg/dL (8.4-10.2); Carbon Dioxide 23 mmol/L (22-30); Chloride 106 mmol/L (98-107); Estimated CRCL calculation 104 ml/min; Estimated Glomerular Filt Rate > 60; Glucose 106 mg/dL (65-110); Potassium 3.9 mmol/L (3.4-5.0); Sodium 139 mmol/L (137-145)
[2024-07-31 13:48] LABS: Glucose Point of Care 116 mg/dl (65-105)
[2024-07-31 14:06] LABS: Bilirubin Urine Negative (Negative); Blood Urine Negative (Negative); Color Urine Yellow (Yellow); Glucose Urine UA Negative (Negative); Ketones Urine Negative (Negative); Leukocyte Esterase Ur Negative LEU/UL (Negative); Nitrate Urine Negative (Negative); Protein Urine Trace mg/dL (Negative); Specific Grav Ur 1.026 (1.001-1.035)
[2024-07-31] MEDS: MECLIZINE HCL 25 MG TABLET PO (14:06)
[2024-07-31] MEDS: SODIUM CHLORIDE 0.9% IV 1,000 ML 999 ML IV CONT (14:06)
[2024-07-31 14:08] LABS: Bacteria Urine None Seen /hpf; Non Pathogenic Casts 0-2; RBC Urine 0-2 /hpf (0-2); Squamous Epithelial Cell Urine None Seen /hpf (Few); WBC Urine 0-5 /hpf (0-3)
[2024-07-31 14:10] LABS: Add Urine Microscopic? YES; Appearance Urine Sl Cloudy (Clear)
[2024-07-31 14:21] VITALS: BP 120/83; PULSE 56; RESP 18; O2SAT 97
--- OUTSIDE RECORDS SUMMARY | 2024-07-31 14:38 | XMS_ITS | Clinical Summary ---
Author Organization [facility] Address [address] [place] [address] Care Team Providers Care Fruit Harvester Machine Operator Name Role Phone Chris Sanchez SETTLEMENT TECHNICIAN Primary Care Provider [phone] Allergies No known active allergies Medications HYDROcodone-konrad [...] patient's age to complete this topic Insurance [facility] Care Teams Fruit Harvester Machine Operator Relationship Specialty Start Date End Date Chris Sanchez NP [facility], [place] [address] PCP - General Nurse Practitioner 01/14/24
--- OUTSIDE RECORDS SUMMARY | 2024-07-31 14:38 | XMS_ITS | Referral Summary ---
Author Organization [facility] Address [address] [place] [address] Care Team Providers Care Cell Phone Repair Technician Name Role Phone Chris Sanchez BIO MEDICAL TECHNICIAN Primary Care Provider [phone] Allergies No known active allergies Medications HYDROcodone-konrad [...] Plan of Treatment Not on file Insurance [facility] Care Teams Cell Phone Repair Technician Relationship Specialty Start Date End Date Chris Sanchez NP [address] [place] [address] PCP - General Nurse Practitioner 01/14/24
--- NOTE | 2024-07-31 15:40 | ED_ITS ---
HPI - General Adult General Chief complaint: Weakness Stated complaint: Generalized weakness-sent from Time Seen by Provider: 07/31/24 13:14 History of Present Illness HPI narrative: Patient is a 54-year-old male who presents ER with dizziness and weakness. Ongoing over last week. Reports approximately 3 times a day he feels like he might pass out. He checks his blood sugar he drinks soda or has candy and thinks that may help. This will occasionally awaken from sleep. No fevers or chills or sweats. No upper lower extremity numbness or weakness. Related Data Home Medications ?Medication ?Instructions ?Recorded ?Confirmed ?Last Taken ?Type aspirin 81 mg tablet,delayed mg 07/31/24 Unknown History release atorvastatin 40 mg tablet mg 07/31/24 Unknown History sertraline 100 mg tablet mg 07/31/24 Unknown History Allergies Allergy/AdvReac Type Severity Reaction Status Date / Time No Known Allergies Allergy Verified 07/31/24 12:37 Review of Systems 2 Review of Systems: All systems reviewed & are unremarkable except as noted in HPI and below Constitutional: Constitutional: Reports no additional constitutional complaints ENT: Reports system reviewed and no additional complaints, except as documented Cardiovascular: Cardiovascular: Reports no additional cardiovascular complaints Respiratory: Respiratory: Reports no additional respiratory complaints Gastrointestinal: Gastrointestinal: Reports no additional gastrointestinal complaints [facility] Past Medical History Medical History (Updated 07/31/24 @ 15:53 by Alexander Ortiz MD) History of high cholesterol Exam 2 Narrative: GENERAL: Well-appearing, well-nourished, and in no acute distress. HEAD: Normocephalic, atraumatic. EYES: PERRLA and EOMI. ENT: Mucous membranes moist. TMs normal bilaterally. CHEST: Clear to auscultation. No respiratory distress. HEART: Regular rate and rhythm. Normal peripheral pulses. ABDOMEN: Soft, nontender, nondistended. EXTREMITIES: Normal range of motion. No edema. SKIN: Warm, dry, no rash. NEURO: Alert and oriented x3. PSYCH: Normal mood and affect. Course Course Emergency Course: Feels markedly improved with meclizine and IV fluid. Discussed normal lab work/urine/chest x-ray/EKG. Vital Signs Vital signs: Vital Signs Temperature 98.0 F 07/31/24 12:49 Pulse Rate 57 L 07/31/24 12:49 Respiratory Rate 18 07/31/24 12:49 Blood Pressure 127/83 07/31/24 12:49 Pulse Oximetry 98 07/31/24 12:49 Oxygen Delivery Room Air 07/31/24 12:49 Temperature 98.0 F 07/31/24 12:49 Pulse Rate 59 L 07/31/24 15:44 Respiratory Rate 16 07/31/24 15:44 Blood Pressure 105/79 07/31/24 15:44 Pulse Oximetry 96 07/31/24 15:44 Oxygen Delivery Room Air 07/31/24 12:49 Medical Decision Making Vital Signs Vital Signs: Vital Signs Temperature 98.0 F 07/31/24 12:49 Pulse Rate 57 L 07/31/24 12:49 Respiratory Rate 18 07/31/24 12:49 Blood Pressure 127/83 07/31/24 12:49 Pulse Oximetry 98 07/31/24 12:49 Oxygen Delivery Room Air 07/31/24 12:49 Temperature 98.0 F 07/31/24 12:49 Pulse Rate 59 L 07/31/24 15:44 Respiratory Rate 16 07/31/24 15:44 Blood Pressure 105/79 07/31/24 15:44 Pulse Oximetry 96 07/31/24 15:44 Oxygen Delivery Room Air 07/31/24 12:49 Lab Data 07/31/24 13:21 07/31/24 13:21 Labs: Lab Results 07/31/24 07/31/24 07/31/24 Range/Units 13:08 13:21 13:58 WBC 6.0 (4.5-10.0) K/mm3 RBC 5.52 (4.6-6.20) M/mm3 Hgb 16.4 (14.0-18.0) g/dL Hct 49.8 (42.0-52.0) % MCV 90.2 (80-100) fl MCH 29.7 (26-34) pg MCHC 32.9 (32-36) g/dl RDW 13.1 (11.5-14.5) % Plt Count 244 (150-375) k/mm3 MPV 9.9 (7.4-10.4) fl Immature Gran % (Auto) 0.3 (0-0.5) % Neut % (Auto) 68.5 (45.5-73.1) % Lymph % (Auto) 23.8 (18.3-44.2) % [place] % (Auto) 5.3 (2.6-8.5) % Eos % (Auto) 1.3 (0-4.4) % Baso % (Auto) 0.8 (0.2-1.2) % Lymph # (Auto) 1.43 (0.9-3.2) K/mm3 [place] # (Auto) 0.3 (0.1-0.6) K/mm3 Eos # (Auto) 0.1 (0-0.3) K/mm3 Baso # (Auto) 0.1 (0.0-0.1) K/mm3 Abs Immat Gran (auto) 0.02 (0.00-0.031) K/mm3 Absolute Neuts (auto) 4.1 (1.3-6.7) K/mm3 Absolute Nucleated RBC 0.000 (0.0-0.012) K/mm3 Nucleated RBC % 0.0 (0.0-0.2) % Sodium 139 (137-145) mmol/L Potassium 3.9 (3.4-5.0) mmol/L Chloride 106 (98-107) mmol/L Carbon Dioxide 23 (22-30) mmol/L Anion Gap 10 (4-12) mmol/L BUN 20 (9-20) mg/dL Creatinine 0.71 (0.7-1.3) mg/dL Estim Creat Clear Calc 104 ml/min Estimated GFR > 60 (59 - ) Glucose 106 (65-110) mg/dL POC Capillary Glucose 116 H (65-105) mg/dl Calcium 8.8 (8.4-10.2) mg/dL Total Bilirubin 0.5 (0.2-1.3) mg/dL AST 22 (17-59) U/L ALT 25 (6-50) U/L Alkaline Phosphatase 67 (38-126) U/L Total Protein 8.0 (6.3-8.2) g/dL Albumin 4.5 (3.5-5.1) g/dL Urine Color Yellow (Yellow) Urine Appearance Sl cloudy (Clear) Urine pH 8.0 (5.0-9.0) Ur Specific [place] 1.026 (1.001-1.035) Urine Protein Trace (Negative) mg/dL Urine Glucose (UA) Negative (Negative) mg/dL Urine Ketones Negative (Negative) mg/dL Ur Blood (Man) Negative (Negative) Urine Nitrate Negative (Negative) Urine Bilirubin Negative (Negative) Urine Urobilinogen 1.0 (<2.0) mg/dL Leukocyte Esterase Rfl Negative (Negative) DULCE/UL Urine RBC 0-2 (0-2) /hpf Urine WBC 0-5 (0-3) /hpf Ur Squamous Epith Cells None seen (Few) /hpf Urine Bacteria None seen /hpf Urine Casts 0-2 Imaging Data Radiologist's impression: ITS Impressions Chest X-Ray 07/31/24 14:01 Impression: Normal chest. ECG Data EKG #1: ECG completion date: 07/31/24 ECG completion time: 13:41 EKG Interpretation: bradycardia (58), sinus rhythm, no ectopy, normal QRS and NL axis Discharge Plan Discharge Clinical Impression: Vertigo Patient Disposition: Home Condition: Stable Instructions: Vertigo (ED) Additional Instructions: Return ER if you lose consciousness, you have chest pain and shortness of breath, or you cannot keep down food or water. Take meclizine for dizziness. Follow-up with your primary care doctor. Patient Language: British Prescriptions: New meclizine 25 mg tablet 25 mg PO TID PRN (Reason: dizziness) Qty: 20 0RF No Action atorvastatin 40 mg tablet sertraline 100 mg tablet aspirin 81 mg tablet,delayed release (/EC) Follow-up/Referrals: Laura,JOAQUIM Perez [Primary Care Provider] - 1 Week
[2024-07-31 15:44] VITALS: BP 105/79; PULSE 59; RESP 16; O2SAT 96
== END 2024-07-31 16:02 | disposition home or self-care (01) ==
PROVIDERS: Emergency Medicine; Emergency Provider Emergency Medicine; PCP Registered Nurse
DX: R42 Dizziness and giddiness (principal); R00.1 Bradycardia, unspecified; E78.5 Hyperlipidemia, unspecified
CPT/HCPCS: 36415; 71046; 80053; 81001; 82948; 85025; 93005; 96360; 99283; A9270; J7030

== ENCOUNTER 2025-03-03 10:58 | Emergency (ER) | payer OTHER, SELFPAY ==
[2025-03-03] VITALS (28 sets, daily range): BP systolic 123–161; BP diastolic 85–102; PULSE 61–88; RESP 11–25; TEMP 36.6; O2SAT 93–99
--- NOTE | ~2025-03-03 | CT_ITS ---
EXAMINATION: CT brain wo con DATE: 03/03/2025 12:14 INDICATION: Dizziness. TECHNIQUE: Computed tomography (CT) of the head was performed without intravenous contrast. The mA was adjusted according to patient size. Iterative reconstruction technique was employed. The dose-length product was 681.00 mGy-cm. COMPARISON: None FINDINGS: There are scattered areas of low attenuation in the cerebral white matter. There is no intracranial hemorrhage, acute infarction, or abnormal intracranial mass lesion. The ventricles are normal in size. There is mucosal thickening in the paranasal sinuses. The orbits are normal. The mastoid air cells are normal. IMPRESSION: 1. Mild nonspecific cerebral white matter disease, which likely represents chronic small vessel ischemic disease. Reviewed, dictated and finalized at location E. FACULTY ASSISTANT IMPRESSION: 1. 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
--- OUTSIDE RECORDS SUMMARY | 2025-03-03 11:31 | XMS_ITS | Clinical Summary ---
Author Organization [facility] Address [address] [place] [address] Care Team Providers Care Carpet Finishing Supervisor Name Role Phone Chris Sanchez MASTER ESTHETICIAN Primary Care Provider [phone] Allergies No known active allergies Medications HYDROcodone-konrad [...] 12:57 PM CDT Height 167.6 cm (5' 6) 01/14/2024 12:57 PM CDT Body Mass Index 31.47 01/14/2024 12:57 PM CDT Plan of Treatment Health Maintenance Due Date Last Done Comments Colon Cancer Screening-Colonoscopy 1968 Depression Screening 1968 Hepatitis C Screening 1968 Prostate Cancer Screening-PSA 1968 Hepatitis B Screening 1986 Regular Well Visit/Exam 18-64 1986 Covid-19 Vaccine ( season) 2024 02/08/2022, 03/20/2021, 07/26/2020, Additional history exists Influenza Vaccine (#1) 2024 , 12/27/2022, 12/21/2021, Additional history exists DTaP/Tdap/Td Vaccine (3 - Td or Tdap) 08/12/2027 08/11/2017, 08/03/2007 Zoster Vaccine Completed 01/04/2022, 10/19/2021 Pneumococcal vaccine <65 Aged Out No longer eligible based on patient's age to complete this topic Insurance [facility] Care Teams Carpet Finishing Supervisor Relationship Specialty Start Date End Date Chris Sanchez NP [address] [place] [address] PCP - General Nurse Practitioner 01/14/24
--- NOTE | 2025-03-03 12:22 | ED.GENADULT ---
HPI - General Adult General Chief complaint: Dizziness Stated complaint: dizziness weakness and nausea Time Seen by Provider: 03/03/25 11:10 History of Present Illness HPI narrative: 54-year-old male presented to the emergency department for evaluation for vertigo symptoms. Patient states he does have prior history of vertigo. Patient states this occurred back in July and he was prescribe some meclizine. Patient reports he has had some increased dizziness over the last 9-10 days and he did take meclizine but states this did not help his symptoms. Patient states he does have some issues with dizziness when getting up and moving. Patient denies any dizziness at rest. Patient denies the sensation that he feels like he is going to pass out. Patient denies any other complaints. 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 Related Data Home Medications ?Medication ?Instructions ?Recorded ?Confirmed ?Last Taken ?Type aspirin 81 mg tablet,delayed mg 07/31/24 Unknown History release atorvastatin 40 mg tablet mg 07/31/24 Unknown History sertraline 100 mg tablet mg 07/31/24 Unknown History Allergies Allergy/AdvReac Type Severity Reaction Status Date / Time No Known Allergies Allergy Verified 03/03/25 11:09 Review of Systems Review of Systems: All systems reviewed & are unremarkable except as noted in HPI and below PMFSH Past Medical History Medical History (Updated 03/03/25 @ 16:00 by Talon Lorenzo MD) History of high cholesterol Exam Narrative: APPEARANCE: Well appearing, no pain, no distress, well-nourished. HEAD: normocephalic, atraumatic. EYES: PERRLA/EOMI, conjunctivae clear. NOSE: Normal no drainage EARS:TMS clear with good light reflex. THROAT: Pharynx clear, no exudate. NECK: Supple. No adenopathy, no masses. RESPIRATORY: Airway patent, respirations nonlabored. Clear to auscultation bilaterally, no rales, rhonchi, wheezing. CARDIOVASCULAR: Regular rate and rhythm without murmurs rubs or gallops. ABDOMINAL: Soft, nontender, nondistended, normal bowel sounds MUSCULOSKELETAL: Moves all extremities. Strength/ROM intact, No edema, No calf tenderness. NEURO: Alert. Cranial nerves II through XII intact. Good gait. Good coordination. Mildly unsteady gait during ambulation. SKIN: Warm, dry. Normal Color Course Vital Signs Vital signs: Vital Signs Temperature 97.8 F 03/03/25 11:06 Pulse Rate 76 03/03/25 11:06 Respiratory Rate 18 03/03/25 11:06 Blood Pressure 147/96 H 03/03/25 11:06 Pulse Oximetry 96 03/03/25 11:06 Oxygen Delivery Room Air 03/03/25 11:06 Temperature 97.8 F 03/03/25 11:06 Pulse Rate 82 03/03/25 16:16 Respiratory Rate 16 03/03/25 16:16 Blood Pressure 133/88 03/03/25 16:16 Pulse Oximetry 99 03/03/25 16:16 Oxygen Delivery Room Air 03/03/25 11:06 Medical Decision Making MDM Narrative Medical decision making narrative: 54-year-old male presents to the emergency department for evaluation for anxiety increased dizziness. Patient is currently afebrile with no leukocytosis stable hemoglobin of 17.8. Patient has normal CMP including normal kidney function. Patient's orthostatics were not positive. Patient did feel improved with a L of lactated Ringer's, p.o. Ativan and p.o. meclizine. Patient was encouraged close follow-up with primary care physician. Patient will be provided Ativan and meclizine for home. Patient was warned not to work from heights well on these medications or while having symptoms of dizziness. Differential Diagnosis Differential Diagnosis: Vertigo, anxiety, dehydration, orthostatic hypotension Vital Signs Vital Signs: Vital Signs Temperature 97.8 F 03/03/25 11:06 Pulse Rate 76 03/03/25 11:06 Respiratory Rate 18 03/03/25 11:06 Blood Pressure 147/96 H 03/03/25 11:06 Pulse Oximetry 96 03/03/25 11:06 Oxygen Delivery Room Air 03/03/25 11:06 Temperature 97.8 F 03/03/25 11:06 Pulse Rate 82 03/03/25 16:16 Respiratory Rate 16 03/03/25 16:16 Blood Pressure 133/88 03/03/25 16:16 Pulse Oximetry 99 03/03/25 16:16 Oxygen Delivery Room Air 03/03/25 11:06 Lab Data Lab results reviewed: Yes I reviewed the patient's lab results. 03/03/25 12:20 03/03/25 12:20 Labs: Lab Results 03/03/25 Range/Units 12:20 WBC 5.9 (4.5-10.0) K/mm3 RBC 5.97 (4.6-6.20) M/mm3 Hgb 17.8 (14.0-18.0) g/dL Hct 52.8 H (42.0-52.0) % MCV 88.4 (80-100) fl MCH 29.8 (26-34) pg MCHC 33.7 (32-36) g/dl RDW 12.8 (11.5-14.5) % Plt Count 246 (150-375) k/mm3 MPV 10.4 (7.4-10.4) fl Immature Gran % (Auto) 0.2 (0-0.5) % Neut % (Auto) 75.4 H (45.5-73.1) % Lymph % (Auto) 18.0 L (18.3-44.2) % [place] % (Auto) 4.9 (2.6-8.5) % Eos % (Auto) 1.0 (0-4.4) % Baso % (Auto) 0.5 (0.2-1.2) % Lymph # (Auto) 1.06 (0.9-3.2) K/mm3 [place] # (Auto) 0.3 (0.1-0.6) K/mm3 Eos # (Auto) 0.1 (0-0.3) K/mm3 Baso # (Auto) 0.0 (0.0-0.1) K/mm3 Abs Immat Gran (auto) 0.01 (0.00-0.031) K/mm3 Absolute Neuts (auto) 4.4 (1.3-6.7) K/mm3 Absolute Nucleated RBC 0.000 (0.0-0.012) K/mm3 Nucleated RBC % 0.0 (0.0-0.2) % PT 12.9 (11.1-14.7) Seconds INR 1.0 APTT 26.7 (22.3-36.8) Seconds Sodium 137 (137-145) mmol/L Potassium 4.0 (3.4-5.0) mmol/L Chloride 107 (98-107) mmol/L Carbon Dioxide 21 L (22-30) mmol/L Anion Gap 9 (4-12) mmol/L BUN 16 (9-20) mg/dL Creatinine 0.79 (0.7-1.3) mg/dL Estim Creat Clear Calc 94 ml/min Estimated GFR > 60 (59 - ) Glucose 114 H (65-110) mg/dL Calcium 9.3 (8.4-10.2) mg/dL Total Bilirubin 0.5 (0.2-1.3) mg/dL AST 29 (17-59) U/L ALT 31 (6-50) U/L Alkaline Phosphatase 66 (38-126) U/L Total Protein 7.8 (6.3-8.2) g/dL Albumin 4.7 (3.5-5.1) g/dL Imaging Data Radiologist's impression: Impressions Head CT 03/03/25 12:15 IMPRESSION: 1. Mild nonspecific cerebral white matter disease, which likely represents chronic small vessel ischemic disease. Discharge Plan Discharge Clinical Impression: Vertigo, Anxiety Patient Disposition: Home Condition: Stable Instructions: Antibiotic Form, Vertigo (ED), Dizziness (ED) Additional Instructions: Ativan as directed for anxiety. Have close follow-up with your primary care physician. Meclizine as needed for vertigo control. Drink plenty of fluids. While you are having symptoms of dizziness or while you are taking the Ativan do not work from heights. Patient Language: Citizen Of [place] Prescriptions: New lorazepam [Ativan] 0.5 mg tablet 0.5 mg PO BID PRN (Reason: anxiety) 7 Days Qty: 14 0RF meclizine 25 mg tablet 25 mg PO BID PRN (Reason: dizziness) 7 Days Qty: 14 0RF No Action atorvastatin 40 mg tablet sertraline 100 mg tablet aspirin 81 mg tablet,delayed release (DR/EC) meclizine 25 mg tablet 25 mg PO TID PRN (Reason: dizziness) Qty: 20 0RF Follow-up/Referrals: Laura,JOAQUIM Perez [Primary Care Provider]
[2025-03-03] MEDS: MECLIZINE HCL 25 MG TABLET PO (12:24)
[2025-03-03 12:25] LABS: Hematocrit 52.8 % (42.0-52.0); Hemoglobin 17.8 g/dL (14.0-18.0); Immature Granulocyte Percent A 0.2 % (0-0.5); Lymphocytes Absolute Auto 1.06 K/mm3 (0.9-3.2); Mean Corpuscular HGB Conc 33.7 g/dl (32-36); Mean Corpuscular Hemoglobin 29.8 pg (26-34); Mean Corpuscular Volume 88.4 fl (80-100); Nucleated Red Blood Cells Absolute Auto 0.000 K/mm3 (0.0-0.012); Nucleated Red Blood Cells Perc 0.0 % (0.0-0.2); Platelet Count Result 246 k/mm3 (150-375); Red Blood Count 5.97 M/mm3 (4.6-6.20); White Blood Count 5.9 K/mm3 (4.5-10.0)
[2025-03-03 12:39] LABS: Alanine Aminotransferase 31 U/L (6-50); Albumin Level 4.7 g/dL (3.5-5.1); Alkaline Phosphatase 66 U/L (38-126); Anion Gap 9 mmol/L (4-12); Aspartate Amino Transferase 29 U/L (17-59); Bilirubin,Total 0.5 mg/dL (0.2-1.3); Blood Urea Nitrogen 16 mg/dL (9-20); Calcium 9.3 mg/dL (8.4-10.2); Carbon Dioxide 21 mmol/L (22-30); Chloride 107 mmol/L (98-107); Estimated CRCL calculation 94 ml/min; Estimated Glomerular Filt Rate > 60; Glucose 114 mg/dL (65-110); Potassium 4.0 mmol/L (3.4-5.0); Sodium 137 mmol/L (137-145); Total Protein 7.8 g/dL (6.3-8.2)
[2025-03-03 12:40] LABS: INR 1.0; Prothrombin Time 12.9 Seconds (11.1-14.7)
[2025-03-03 12:41] LABS: Partial Thromboplastin Time 26.7 Seconds (22.3-36.8)
[2025-03-03] MEDS: LACTATED RINGERS 1,000 ML 999 ML IV CONT (13:18)
[2025-03-03] MEDS: LORazepam (*CRX) 1 MG TABLET PO (13:33)
== END 2025-03-03 16:18 | disposition home or self-care (01) ==
PROVIDERS: Emergency Provider Emergency Medicine; PCP Registered Nurse
DX: R42 Dizziness and giddiness (principal); F41.9 Anxiety disorder, unspecified
CPT/HCPCS: 36415; 70450; 80053; 85025; 85610; 85730; 96360; 99284; A9270; J7120